=== PATIENT | female | born 1930 | race African-American/Black ===

== ENCOUNTER 2016-08-19 14:39 | Inpatient (IN) ==
[2016-08-19] MEDS ORDERED: 0.9 % Sodium Chloride 1,000 ML IVC ONE ×2 (15:01→16:44)
--- NOTE | 2016-08-19 15:02 | Emergency Department Note ---
Disposition Clinical Impression: Altered mental status, Leukocytosis Disposition: Admitted As Inpatient Condition: Fair Referrals: NO,PCP [Primary Care Provider] - Forms: ED Satisfaction Letter General Adult HPI - General Chief complaint: ED Altered Mental Status Stated complaint: mumbling less Time Seen by Provider: 08/19/16 14:41 Limitations: language barrier, age - History of Present Illness Pain Scale: 0 - Related Data Home Medications Medication Instructions Recorded Confirmed Amino Acids/Protein Hydrolys 30 ml PO DAILY 08/19/16 08/19/16 [Pro-Stat Awc Liquid] Carvedilol [Coreg] 6.25 mg PO BIDWM 08/19/16 08/19/16 Clopidogrel [Plavix] 75 mg PO DAILY 08/19/16 08/19/16 Cyclobenzaprine [Flexeril] 10 mg PO Q8H PRN 08/19/16 08/19/16 Diphenoxylate/Atropine [Lomotil 1 tab PO Q6H PRN 08/19/16 08/19/16 2.5 mg/0.025 mg] Divalproex Sodium [Depakote 250 mg PO TID 08/19/16 08/19/16 Sprinkle] Furosemide [Lasix] 20 mg PO DAILY PRN 08/19/16 08/19/16 Furosemide [Lasix] 40 mg PO DAILY 08/19/16 08/19/16 Lactose-Reduced Food [Ensure Plus] 1 bottle PO DAILY 08/19/16 08/19/16 Lipase/Protease/Amylase [Creon Dr 1 each PO TID 08/19/16 08/19/16 24,000 Units Capsule] Melatonin [Melatin] 6 mg PO HS 08/19/16 08/19/16 Memantine [Namenda] 5 mg PO HS 08/19/16 08/19/16 Methyl Salicylate/Menthol [Cold & 1 appl TP Q12H PRN 08/19/16 08/19/16 Hot Pain Relief [place]] Mirtazapine 7.5 mg PO HS 08/19/16 08/19/16 Multivitamin-Min/Iron/FA/Vit K 1 each PO DAILY 08/19/16 08/19/16 [Multi-Day Plus Minerals Tablet] Nystatin POWDER [Nystop] 1 appl TP BID PRN 08/19/16 08/19/16 Potassium Chloride [Klor-Con 10] 20 meq PO DAILY 08/19/16 08/19/16 Pravastatin Sodium [Pravachol] 20 mg PO HS 08/19/16 08/19/16 Quetiapine Fumarate [SEROquel] 25 mg PO HS 08/19/16 08/19/16 RisperiDONE [Risperdal] 0.5 mg PO BID 08/19/16 08/19/16 Tramadol HCl [Ultram] 50 mg PO Q4H 08/19/16 08/19/16 Tramadol HCl [Ultram] 50 mg PO Q4H PRN 08/19/16 08/19/16 Allergies Allergy/AdvReac Type Severity Reaction Status Date / Time acetaminophen Allergy Mild Rash Verified 06/09/15 13:00 aspirin [ASA] Allergy Rash Verified 06/09/15 13:00 bacitracin Allergy Rash Verified 06/09/15 13:00 Cefadroxil Allergy Rash Verified 06/09/15 13:00 cephalexin Allergy See Verified 08/19/16 14:56 Comments iodine Allergy See Verified 08/19/16 14:56 Comments Penicillins Allergy See Verified 08/19/16 14:56 Comments Past Medical History - Past Medical History Medical history: Reports: cancer, COPD, dementia, GERD, hepatitis, hyperlipidemia, hypertension, migraine, osteoporosis, other Psychiatric history: Reports: anxiety, depression, other - Social History Smoking Status: Former smoker Drug use: Reports: none Physical Exam - General Limitations: language barrier, age General appearance: alert, in no apparent distress Course Vital Signs O2 Sat by Pulse Oximetry 96 08/19/16 14:40 Temperature 98.7 F 08/19/16 14:44 Pulse Rate 96 08/19/16 17:59 Respiratory Rate 20 08/19/16 17:59 Blood Pressure 126/68 08/19/16 17:59 O2 Sat by Pulse Oximetry 96 08/19/16 17:59 Oxygen Delivery Oxygen Delivery Nasal Cannula Medical Decision Making - Lab Data Result diagrams: 08/19/16 16:02 08/19/16 16:02 Lab Results 08/19/16 08/19/16 08/19/16 Range/Units 15:20 16:02 16:02 WBC 18.8 H (4.3-11.1) K/mcL RBC 4.67 (3.82-4.97) M/mcL Hgb 12.9 (11.5-15.4) g/dL Hct 42.2 (35.3-44.9) % MCV 90.4 (83.0-100.0) fL MCH 27.6 L (28.0-33.3) pg MCHC 30.6 L (31.6-35.5) g/dL RDW 19.1 H (11.5-14.5) % Plt Count 213 (140-400) K/mcL MPV 12.2 (9.4-12.4) fL Immature Gran % 1.3 (0-4) % Seg Neutrophils % 83.2 % Lymphocytes % 6.5 % Monocytes % 8.3 % Eosinophils % 0.4 % Basophils % 0.3 % Neutrophils # 15.7 H (1.6-8.9) K/mcL Lymphocytes # 1.2 (0.6-4.6) K/mcL Monocytes # 1.6 H (0.0-1.3) K/mcL Eosinophils # 0.1 (0.0-0.6) K/mcL Basophils # 0.1 (0.0-0.2) K/mcL Nucleated RBCs/100 WBC 0.1 H (0) /100 WBC Sodium 162 H* (136-145) mEq/L Potassium 3.9 (3.5-4.5) mEq/L Chloride 116 H (98-109) mEq/L Carbon Dioxide 34 H (19-29) mEq/L BUN 54 H (7-20) mg/dL Creatinine 1.67 H (0.57-1.11) mg/dL Est GFR ( Amer) 35 L (> 60) Est GFR (Non-Af Amer) 29 L (> 60) BUN/Creatinine Ratio 32 H (6-26) Glucose 125 H (70-99) mg/dL Calculated Osmolality 350 H (280-300) Calcium 9.1 (8.6-10.8) mg/dL Total Bilirubin (0.2-1.2) mg/dL Direct Bilirubin (0.0-0.5) mg/dL Indirect Bilirubin (0.0-1.2) mg/dL AST (5-34) Units/L ALT (0-55) Units/L Alkaline Phosphatase (38-126) Units/L Serum Total Protein (6.0-8.3) g/dL Albumin (3.5-5.0) g/dL Globulin (2.4-3.5) g/dL Albumin/Globulin Ratio (1.1-2.2) Urine Color Yellow (Yellow) Urine Clarity Clear (Clear) Urine pH 5.0 (5.0-8.0) pH Units Ur Specific [place] 1.017 (1.010-1.025) Urine Protein Negative (Neg-Trace) mg/dL Urine Glucose (UA) Normal (Normal) mg/dL Urine Ketones Negative (Negative) mg/dL Urine Blood Negative (Negative) Urine Nitrite Negative (Negative) Urine Bilirubin Negative (Negative) Urine Urobilinogen Normal (Normal) mg/dL Ur Leukocyte Esterase Negative (Negative) Ur Culture Indicated? NO (NO) Valproic Acid (50-100) mcg/mL Specimen Rejected 08/19/16 08/19/16 Range/Units 16:02 17:30 WBC (4.3-11.1) K/mcL RBC (3.82-4.97) M/mcL Hgb (11.5-15.4) g/dL Hct (35.3-44.9) % MCV (83.0-100.0) fL MCH (28.0-33.3) pg MCHC (31.6-35.5) g/dL RDW (11.5-14.5) % Plt Count (140-400) K/mcL MPV (9.4-12.4) fL Immature Gran % (0-4) % Seg Neutrophils % % Lymphocytes % % Monocytes % % Eosinophils % % Basophils % % Neutrophils # (1.6-8.9) K/mcL Lymphocytes # (0.6-4.6) K/mcL Monocytes # (0.0-1.3) K/mcL Eosinophils # (0.0-0.6) K/mcL Basophils # (0.0-0.2) K/mcL Nucleated RBCs/100 WBC (0) /100 WBC Sodium (136-145) mEq/L Potassium (3.5-4.5) mEq/L Chloride (98-109) mEq/L Carbon Dioxide (19-29) mEq/L BUN (7-20) mg/dL Creatinine (0.57-1.11) mg/dL Est GFR ( Amer) (> 60) Est GFR (Non-Af Amer) (> 60) BUN/Creatinine Ratio (6-26) Glucose (70-99) mg/dL Calculated Osmolality (280-300) Calcium (8.6-10.8) mg/dL Total Bilirubin 0.2 (0.2-1.2) mg/dL Direct Bilirubin 0.2 (0.0-0.5) mg/dL Indirect Bilirubin 0.0 (0.0-1.2) mg/dL AST 34 (5-34) Units/L ALT 25 (0-55) Units/L Alkaline Phosphatase 79 (38-126) Units/L Serum Total Protein 7.9 (6.0-8.3) g/dL Albumin 2.4 L (3.5-5.0) g/dL Globulin 5.5 H (2.4-3.5) g/dL Albumin/Globulin Ratio 0.4 L (1.1-2.2) Urine Color (Yellow) Urine Clarity (Clear) Urine pH (5.0-8.0) pH Units Ur Specific [place] (1.010-1.025) Urine Protein (Neg-Trace) mg/dL Urine Glucose (UA) (Normal) mg/dL Urine Ketones (Negative) mg/dL Urine Blood (Negative) Urine Nitrite (Negative) Urine Bilirubin (Negative) Urine Urobilinogen (Normal) mg/dL Ur Leukocyte Esterase (Negative) Ur Culture Indicated? (NO) Valproic Acid 65.24 (50-100) mcg/mL Specimen Rejected Hemolyzed Critical Care Time Critical Care Time: Yes Total Critical Care Time: 45 Attestation: Patient presented with altered mental status. Sodium markedly elevated requiring IV fluids. Lumbar puncture performed by the resident physician under my supervision. Admitted to the medicine service in guarded condition Attestation Statement - Attestation Attestation: I examined this patient and my medical decision-making was reviewed with the [employer] TECH[employer]ICAL OFFICER/PA/Advanced Practice Nurse/Resident Physician. I agree with the documented findings, disposition and treatment plan as described except to the extent set forth below. Face to face time provided Patient sent from the [facility] for changes in baseline mentation. She has a known history of dementia. Medication list reviewed by me. Patient nonverbal in the emergency department and is reported to be nonverbal at baseline. Right lower extremity covered and a circumferential dressing at the foot and ankle. Plan of care and management discussed by me with the resident physician 18:25: Lumbar puncture performed by the resident physician under my supervision. We were unable to contact any caretakers or surrogate decision- makers in order to obtain written consent. Given her fever and altered mentation, the lumbar puncture was performed under urgent circumstances.
--- NOTE | 2016-08-19 15:24 | Emergency Department Note ---
Disposition Clinical Impression: Altered mental status, Leukocytosis Disposition: Admitted As Inpatient Condition: Fair Referrals: NO,PCP [Primary Care Provider] - Forms: ED Satisfaction Letter Time of Disposition: 18:43 General Adult HPI - General Chief complaint: ED Altered Mental Status Stated complaint: mumbling less Time Seen by Provider: 08/19/16 14:41 Source: EMS Mode of arrival: EMS Limitations: language barrier, age Nursing Notes Reviewed: Yes Vital Signs Reviewed: Yes - History of Present Illness HPI Narrative: 78-year-old female presents from [facility] where she resides for advanced dementia. She presents for reportedly less incomprehensible mumbling from her baseline. At baseline, the patient is talkative with incomprehensible words, but lately the patient has not been mumbling as much as usual. No further history is available from the patient. There is no report of any shortness of breath or vomiting or change in intake or output or fevers. No known recent illness or injury. Pain Scale: 0 - Related Data Home Medications Medication Instructions Recorded Confirmed Amino Acids/Protein Hydrolys 30 ml PO DAILY 08/19/16 08/19/16 [Pro-Stat Awc Liquid] Carvedilol [Coreg] 6.25 mg PO BIDWM 08/19/16 08/19/16 Clopidogrel [Plavix] 75 mg PO DAILY 08/19/16 08/19/16 Cyclobenzaprine [Flexeril] 10 mg PO Q8H PRN 08/19/16 08/19/16 Diphenoxylate/Atropine [Lomotil 1 tab PO Q6H PRN 08/19/16 08/19/16 2.5 mg/0.025 mg] Divalproex Sodium [Depakote 250 mg PO TID 08/19/16 08/19/16 Sprinkle] Furosemide [Lasix] 20 mg PO DAILY PRN 08/19/16 08/19/16 Furosemide [Lasix] 40 mg PO DAILY 08/19/16 08/19/16 Lactose-Reduced Food [Ensure Plus] 1 bottle PO DAILY 08/19/16 08/19/16 Lipase/Protease/Amylase [Creon Dr 1 each PO TID 08/19/16 08/19/16 24,000 Units Capsule] Melatonin [Melatin] 6 mg PO HS 08/19/16 08/19/16 Memantine [Namenda] 5 mg PO HS 08/19/16 08/19/16 Methyl Salicylate/Menthol [Cold & 1 appl TP Q12H PRN 08/19/16 08/19/16 Hot Pain Relief [place]] Mirtazapine 7.5 mg PO HS 08/19/16 08/19/16 Multivitamin-Min/Iron/FA/Vit K 1 each PO DAILY 08/19/16 08/19/16 [Multi-Day Plus Minerals Tablet] Nystatin POWDER [Nystop] 1 appl TP BID PRN 08/19/16 08/19/16 Potassium Chloride [Klor-Con 10] 20 meq PO DAILY 08/19/16 08/19/16 Pravastatin Sodium [Pravachol] 20 mg PO HS 08/19/16 08/19/16 Quetiapine Fumarate [SEROquel] 25 mg PO HS 08/19/16 08/19/16 RisperiDONE [Risperdal] 0.5 mg PO BID 08/19/16 08/19/16 Tramadol HCl [Ultram] 50 mg PO Q4H 08/19/16 08/19/16 Tramadol HCl [Ultram] 50 mg PO Q4H PRN 08/19/16 08/19/16 Allergies Allergy/AdvReac Type Severity Reaction Status Date / Time acetaminophen Allergy Mild Rash Verified 06/09/15 13:00 aspirin [ASA] Allergy Rash Verified 06/09/15 13:00 bacitracin Allergy Rash Verified 06/09/15 13:00 Cefadroxil Allergy Rash Verified 06/09/15 13:00 cephalexin Allergy See Verified 08/19/16 14:56 Comments iodine Allergy See Verified 08/19/16 14:56 Comments Penicillins Allergy See Verified 08/19/16 14:56 Comments All systems ED: reviewed and negative except as stated. Past Medical History - Past Medical History Attestation: Yes The following information was validated with the patient. Source: patient Medical history: Reports: cancer, COPD, dementia, GERD, hepatitis, hyperlipidemia, hypertension, migraine, osteoporosis, other Psychiatric history: Reports: anxiety, depression, other - Social History Smoking Status: Former smoker Drug use: Reports: none Physical Exam - Head Head exam: atraumatic, normocephalic, normal inspection - Eye Eye exam: Present: normal appearance, PERRL, EOMI - ENT ENT exam: normal exam, normal oropharynx, mucous membranes moist - Neck Neck exam: Present: normal inspection, full ROM, trachea midline - Chest Chest inspection: Present: normal inspection, symmetric chest wall rise - Respiratory Respiratory exam: Clear to auscultation bilaterally without wheezes rales or rhonchi Cardiovascular Cardiovascular exam: Present: regular rate, normal rhythm, normal heart sounds - Abdominal Exam Abdominal exam: Present: soft, Non-Tender. Absent: tenderness, distention, guarding, rebound, rigidity - Extremities Exam Left lower extremity status post amputation. Right foot dressing removed to show a very mild pressure ulcer to the right heel. Patient rolled and back exam and sacral exam did not show any abnormality. - Neurological Exam Awake with incomprehensible mumbling. Moves all extremities. - Skin Skin exam: Present: warm, dry, intact, normal color - General Limitations: language barrier, age General appearance: alert, in no apparent distress Course - Reevaluation(s) Reevaluation #1: Patient found to have leukocytosis to 19 with normal chest x-ray, CT head, urinalysis. Abdominal exam is benign. The patient was undressed and there are no skin lesions other than very mild pressure ulcer to the right heel. No signs of C. difficile. Lungs are clear. No vomiting. Given the patient's fever with leukocytosis and altered mental status we will proceed with a lumbar puncture. I attempted to reach the patient's sister Mari Moseley, but the number is disconnected. We will proceed with the procedure emergently. Patient will receive Versed for sedation for the procedure. Time: 16:49 Reevaluation #2: Patient found to have hypernatremia at 162 with acute renal failure with creatinine of 1.67. She is given 1 L of lactated ringer solution here in the emergency department with another liter ordered. Not started on empiric antibiotics due to low suspicion for bacterial meningitis and clear CSF. Patient accepted by hospitalist for further management. Time: 18:42 Vital Signs O2 Sat by Pulse Oximetry 96 08/19/16 14:40 Temperature 98.7 F 08/19/16 14:44 Pulse Rate 96 08/19/16 17:59 Respiratory Rate 20 08/19/16 17:59 Blood Pressure 126/68 08/19/16 17:59 O2 Sat by Pulse Oximetry 96 08/19/16 17:59 Oxygen Delivery Oxygen Delivery Nasal Cannula Procedures - Lumbar Puncture Time Out Performed: Yes Patient Position: right lateral decubitus Skin Prep: 0.5% Chlorhexidine/Alcohol Local Anesthetic: lidocaine 1% Amount of anesthesia used (mL): 4 Spinal Needle Gauge: 22G Interspace Used: L3-L4 Fluid Initially Obtained: clear (Initially slightly bloody) Complications: traumatic tap Medical Decision Making - Lab Data Result diagrams: 08/19/16 16:02 08/19/16 16:02 Lab Results 08/19/16 08/19/16 08/19/16 Range/Units 15:20 16:02 16:02 WBC 18.8 H (4.3-11.1) K/mcL RBC 4.67 (3.82-4.97) M/mcL Hgb 12.9 (11.5-15.4) g/dL Hct 42.2 (35.3-44.9) % MCV 90.4 (83.0-100.0) fL MCH 27.6 L (28.0-33.3) pg MCHC 30.6 L (31.6-35.5) g/dL RDW 19.1 H (11.5-14.5) % Plt Count 213 (140-400) K/mcL MPV 12.2 (9.4-12.4) fL Immature Gran % 1.3 (0-4) % Seg Neutrophils % 83.2 % Lymphocytes % 6.5 % Monocytes % 8.3 % Eosinophils % 0.4 % Basophils % 0.3 % Neutrophils # 15.7 H (1.6-8.9) K/mcL Lymphocytes # 1.2 (0.6-4.6) K/mcL Monocytes # 1.6 H (0.0-1.3) K/mcL Eosinophils # 0.1 (0.0-0.6) K/mcL Basophils # 0.1 (0.0-0.2) K/mcL Nucleated RBCs/100 WBC 0.1 H (0) /100 WBC Sodium 162 H* (136-145) mEq/L Potassium 3.9 (3.5-4.5) mEq/L Chloride 116 H (98-109) mEq/L Carbon Dioxide 34 H (19-29) mEq/L BUN 54 H (7-20) mg/dL Creatinine 1.67 H (0.57-1.11) mg/dL Est GFR ( Amer) 35 L (> 60) Est GFR (Non-Af Amer) 29 L (> 60) BUN/Creatinine Ratio 32 H (6-26) Glucose 125 H (70-99) mg/dL Calculated Osmolality 350 H (280-300) Calcium 9.1 (8.6-10.8) mg/dL Total Bilirubin (0.2-1.2) mg/dL Direct Bilirubin (0.0-0.5) mg/dL Indirect Bilirubin (0.0-1.2) mg/dL AST (5-34) Units/L ALT (0-55) Units/L Alkaline Phosphatase (38-126) Units/L Serum Total Protein (6.0-8.3) g/dL Albumin (3.5-5.0) g/dL Globulin (2.4-3.5) g/dL Albumin/Globulin Ratio (1.1-2.2) Urine Color Yellow (Yellow) Urine Clarity Clear (Clear) Urine pH 5.0 (5.0-8.0) pH Units Ur Specific [place] 1.017 (1.010-1.025) Urine Protein Negative (Neg-Trace) mg/dL Urine Glucose (UA) Normal (Normal) mg/dL Urine Ketones Negative (Negative) mg/dL Urine Blood Negative (Negative) Urine Nitrite Negative (Negative) Urine Bilirubin Negative (Negative) Urine Urobilinogen Normal (Normal) mg/dL Ur Leukocyte Esterase Negative (Negative) Ur Culture Indicated? NO (NO) Valproic Acid (50-100) mcg/mL Specimen Rejected 08/19/16 08/19/16 Range/Units 16:02 17:30 WBC (4.3-11.1) K/mcL RBC (3.82-4.97) M/mcL Hgb (11.5-15.4) g/dL Hct (35.3-44.9) % MCV (83.0-100.0) fL MCH (28.0-33.3) pg MCHC (31.6-35.5) g/dL RDW (11.5-14.5) % Plt Count (140-400) K/mcL MPV (9.4-12.4) fL Immature Gran % (0-4) % Seg Neutrophils % % Lymphocytes % % Monocytes % % Eosinophils % % Basophils % % Neutrophils # (1.6-8.9) K/mcL Lymphocytes # (0.6-4.6) K/mcL Monocytes # (0.0-1.3) K/mcL Eosinophils # (0.0-0.6) K/mcL Basophils # (0.0-0.2) K/mcL Nucleated RBCs/100 WBC (0) /100 WBC Sodium (136-145) mEq/L Potassium (3.5-4.5) mEq/L Chloride (98-109) mEq/L Carbon Dioxide (19-29) mEq/L BUN (7-20) mg/dL Creatinine (0.57-1.11) mg/dL Est GFR ( Amer) (> 60) Est GFR (Non-Af Amer) (> 60) BUN/Creatinine Ratio (6-26) Glucose (70-99) mg/dL Calculated Osmolality (280-300) Calcium (8.6-10.8) mg/dL Total Bilirubin 0.2 (0.2-1.2) mg/dL Direct Bilirubin 0.2 (0.0-0.5) mg/dL Indirect Bilirubin 0.0 (0.0-1.2) mg/dL AST 34 (5-34) Units/L ALT 25 (0-55) Units/L Alkaline Phosphatase 79 (38-126) Units/L Serum Total Protein 7.9 (6.0-8.3) g/dL Albumin 2.4 L (3.5-5.0) g/dL Globulin 5.5 H (2.4-3.5) g/dL Albumin/Globulin Ratio 0.4 L (1.1-2.2) Urine Color (Yellow) Urine Clarity (Clear) Urine pH (5.0-8.0) pH Units Ur Specific [place] (1.010-1.025) Urine Protein (Neg-Trace) mg/dL Urine Glucose (UA) (Normal) mg/dL Urine Ketones (Negative) mg/dL Urine Blood (Negative) Urine Nitrite (Negative) Urine Bilirubin (Negative) Urine Urobilinogen (Normal) mg/dL Ur Leukocyte Esterase (Negative) Ur Culture Indicated? (NO) Valproic Acid 65.24 (50-100) mcg/mL Specimen Rejected Hemolyzed - EKG Data EKG #1 EKG attestation: Yes I reviewed and interpreted this EKG. EKG results narrative: Sinus tachycardia at 108 with normal axis and intervals. No ST elevation or depression. No T-wave inversions. Prior EKG in May 2016 showed atrial fibrillation.
[2016-08-19 15:28] LABS: Bilirubin,Urine Negative (Negative); Blood,Urine Negative (Negative); Clarity,Urine Clear (Clear); Color,Urine Yellow (Yellow); Glucose,Urine (UA) Normal (Normal); Ketones,Urine Negative (Negative); Leukocyte Esterase,Urine Negative (Negative); Nitrite,Urine Negative (Negative); Protein,Urine Negative (Neg-Trace); Specific Gravity,Urine 1.017 (1.010-1.025); Urobilinogen,Urine Normal (Normal)
[2016-08-19 16:22] LABS: Basophils # 0.1 K/mcL (0.0-0.2); Basophils % 0.3 %; Eosinophils # 0.1 K/mcL (0.0-0.6); Eosinophils % 0.4 %; Hematocrit 42.2 % (35.3-44.9); Hemoglobin 12.9 g/dL (11.5-15.4); Immature Granulocytes % 1.3 % (0-4); Lymphocytes # 1.2 K/mcL (0.6-4.6); Lymphocytes % 6.5 %; Mean Corpuscular HGB Conc 30.6 g/dL (31.6-35.5); Mean Corpuscular Hemoglobin 27.6 pg (28.0-33.3); Mean Corpuscular Volume 90.4 fL (83.0-100.0); Mean Platelet Volume 12.2 fL (9.4-12.4); Monocytes # 1.6 K/mcL (0.0-1.3); Monocytes % 8.3 %; Neutrophils # 15.7 K/mcL (1.6-8.9); Nucleated Red Blood Cells 0.1 /100 WBC (0); Platelet Count 213 K/mcL (140-400); Red Blood Count 4.67 M/mcL (3.82-4.97); Red Cell Distribution Width 19.1 % (11.5-14.5); Segmented Neutrophils % 83.2 %
[2016-08-19 16:36] LABS: Albumin 2.4 g/dL (3.5-5.0); Albumin/Globulin Ratio 0.4 (1.1-2.2); Bilirubin,Direct 0.2 mg/dL (0.0-0.5); Bilirubin,Total 0.2 mg/dL (0.2-1.2); Calcium 9.1 mg/dL (8.6-10.8); Globulin 5.5 g/dL (2.4-3.5); Potassium 3.9 mEq/L (3.5-4.5); Total Protein 7.9 g/dL (6.0-8.3)
[2016-08-19 16:46] LABS: Valproate 65.24 mcg/mL (50-100)
[2016-08-19] MEDS ORDERED: *HR* Midazolam HCl 5 MG/5 ML VIAL IVP ONE (16:49)
[2016-08-19] MEDS ORDERED: Ringers Solution, Lactated 1,000 ML IVC ONE ×2 (17:11→18:43)
[2016-08-19] MEDS ORDERED: *HR* Midazolam HCl 2 MG/2 ML VIAL IVP ONE (17:12)
[2016-08-19 18:48] LABS: Red Blood Cell,CSF 0.003 M/mcL
[2016-08-19 19:00] LABS: Appearance,CSF Hazy (Clear)
[2016-08-19 19:22] LABS: Glucose,CSF 88 mg/dL (40-70); Total Protein,CSF 43 mg/dL (15-45)
[2016-08-19] MEDS ORDERED: Naloxone 0.4 MG/ML INJ IVP PRN (20:41)
[2016-08-19] MEDS ORDERED: Ringers Solution, Lactated 1,000 ML IVC SCH (21:00)
--- NOTE | 2016-08-19 21:03 | Internal Med History&Physical ---
Date of Encounter: 08/19/16 Time of Encounter: 20:52 Assessment and Plan (1) Dehydration Current visit: Yes Status: Acute Patient with hypernatremia, CAROLINE. Mucous membranes dry on exam, and skin tents. 2L of lactated ringers boluses ordered by ED. Follow with 0.45NS at 125mL/ hr. Recheck sodium Q4hr and chemistry with morning labs. (2) Hypernatremia Current visit: Yes Status: Acute Sodium of 162. Likely secondary to severe dehydration. 2L of LR ordered by ED. Follow up with 0.45NS at 125mL/hr. Check sodium Q4 hours. (3) Acute kidney injury Current visit: Yes Status: Acute Creatinine of 1.67 up from previous baseline of 1.16 on 07/11/16. Likely secondary to severe dehydration. UA not concerning for infection. Hydrate with fluids overnight, recheck chemistry in the morning. (4) Altered mental status Current visit: Yes Status: Acute Patient's baseline mental status is reported to be mumbling nonsense, and she is reportedly less verbal than her baseline. Likely secondary to severe dehydration and/or infection. Qualifiers: Altered mental status type: unspecified Qualified Code(s): R41.82 - Altered mental status, unspecified (5) Leukocytosis Current visit: Yes Status: Acute WBC of 18.8, fever of 100.4. Lactate elevated at 5.3. No clear source of infection as CXR showed no acute cardiopulmonary abnormality, urine was not concerning for infection and CSF from lumbar puncture was not concerning for infection. Blood cultures ordered. CT of chest, abd/pelvis ordered. Will initiate antibiotics once source identified, in the mean time, may be reactive to severe dehydration. Qualifiers: Leukocytosis type: unspecified Qualified Code(s): D72.829 - Elevated white blood cell count, unspecified (6) Dementia Current visit: Yes Status: Acute patient resides at extended care facility for advanced dementia. Requires total care at baseline. Continue home doses of Namenda. [place] thickened liquids and pureed food. Qualifiers: Dementia type: unspecified type Dementia behavioral disturbance: without behavioral disturbance Qualified Code(s): F03.90 - Unspecified dementia without behavioral disturbance (7) DVT prophylaxis Current visit: Yes Status: Acute Internal Medicine - H&P: HPI Chief complaint: altered mental status Admitted From: Emergency Dept Plans for Post Hospital Care: Home History of present illness: Ms. Rivas is a 86 year old female with dementia, hypertension, hyperlipidemia, hepatitis C, history of colon cancer, COPD, was sent to the emergency department from her extended care facility with a change in her baseline mental status. Patient is reportedly minimally verbal with nonsensical mumbling at baseline, is reported that she was not verbalizing as much as her usual baseline. Evaluation in the emergency department revealed elevated white blood cell count of 18.8, hypernatremia with sodium of 162, acute kidney injury with BUN of 54 and creatinine of 1.67, lactic acidosis with a lactate of 5.3. Patient was tachycardic with heart rate in the 90s and her temperature was 100.4. UA was negative for infection, chest x-ray showed no acute abnormality, lumbar puncture was clear and not concerning for infection. On exam, patient yells out with with physical stimuli. Heart has regular rate and rhythm, lungs clear to auscultation bilaterally. She has a left above-knee amputation. Mucous membranes are dry, skin with tenting. Past Med Surg Social Fam HX - Past Medical History Medical history: cancer (history of colon cancer), COPD, dementia, GERD, hepatitis, hyperlipidemia, hypertension, migraine, osteoporosis, other Psychiatric history: anxiety, depression, other - Past Surgical History Surgical History: orthopedic, other - Social History Smoking Status: Former smoker Drug use: none Internal Medicine - H&P: Meds Amino Acids/Protein Hydrolys [Pro-Stat Awc Liquid] 30 ml PO DAILY 08/19/16 [ History] Carvedilol [Coreg] 6.25 mg PO BIDWM 08/19/16 [History] Clopidogrel [Plavix] 75 mg PO DAILY 08/19/16 [History] Cyclobenzaprine [Flexeril] 10 mg PO Q8H PRN 08/19/16 [History] Diphenoxylate/Atropine [Lomotil 2.5 mg/0.025 mg] 1 tab PO Q6H PRN 08/19/16 [ History] Divalproex Sodium [Depakote Sprinkle] 250 mg PO TID 08/19/16 [History] Furosemide [Lasix] 20 mg PO DAILY PRN 08/19/16 [History] Furosemide [Lasix] 40 mg PO DAILY 08/19/16 [History] Lactose-Reduced Food [Ensure Plus] 1 bottle PO DAILY 08/19/16 [History] Lipase/Protease/Amylase [Creon Dr 24,000 Units Capsule] 1 each PO TID 08/19/16 [ History] Melatonin [Melatin] 6 mg PO HS 08/19/16 [History] Memantine [Namenda] 5 mg PO HS 08/19/16 [History] Methyl Salicylate/Menthol [Cold & Hot Pain Relief [place]] 1 appl TP Q12H PRN 08/19 [History] Mirtazapine 7.5 mg PO HS 08/19/16 [History] Multivitamin-Min/Iron/FA/Vit K [Multi-Day Plus Minerals Tablet] 1 each PO DAILY 08/19/16 [History] Nystatin POWDER [Nystop] 1 appl TP BID PRN 08/19/16 [History] Potassium Chloride [Klor-Con 10] 20 meq PO DAILY 08/19/16 [History] Pravastatin Sodium [Pravachol] 20 mg PO HS 08/19/16 [History] Quetiapine Fumarate [SEROquel] 25 mg PO HS 08/19/16 [History] RisperiDONE [Risperdal] 0.5 mg PO BID 08/19/16 [History] Tramadol HCl [Ultram] 50 mg PO Q4H 08/19/16 [History] Tramadol HCl [Ultram] 50 mg PO Q4H PRN 08/19/16 [History] Allergies acetaminophen Allergy (Mild, Verified 06/09/15 13:00) Rash aspirin [ASA] Allergy (Verified 06/09/15 13:00) Rash bacitracin Allergy (Verified 06/09/15 13:00) Rash Cefadroxil Allergy (Verified 06/09/15 13:00) Rash cephalexin Allergy (Verified 08/19/16 14:56) See Comments iodine Allergy (Verified 08/19/16 14:56) See Comments Penicillins Allergy (Verified 08/19/16 14:56) See Comments ROS unobtainable: due to mental status All Systems PM: A 10-system review of systems was performed and is negative for pertinent findings except as documented above in the HPI. - Constitutional Vitals: Temp Pulse Resp BP Pulse Ox 97.6 F 93 14 104/53 97 08/19/16 20:19 08/19/16 20:19 08/19/16 20:19 08/19/16 20:19 08/19/16 20:19 General appearance: Present: A&O X 0 - Head Head exam: Present: atraumatic, normocephalic - Eye Eye exam: Present: PERRL, conjuntiva pink, sclera anicteric Pupils: Present: PERRL - ENT ENT exam: Present: mucous membranes dry - Neck Neck exam general surgery: Present: supple, trachea midline. Absent: lymphadenopathy - Respiratory Respiratory exam: Present: CTAB. Absent: accessory muscle use, rales, rhonchi, wheezes - Cardiovascular Cardiovascular exam: Present: RRR, +S1, +S2. Absent: diastolic murmur, gallop, rubs, systolic murmur - GI/Abdominal GI/Abdominal exam: Present: normal bowel sounds, soft, tenderness, no peritoneal signs. Absent: distended - Extremities Exam Extremities exam: Present: warm, radial pulses palpable and symetrical. Absent : calf tenderness, cyanotic, pedal edema Additional comments: left above knee amputation - Neurological Exam Neurological exam: Present: CN II-XII intact. Absent: facial droop - Skin Skin exam: Present: dry, intact Additional comments: tenting Internal Med - H&P Results - Labs CBC & Chem 7: 08/19/16 16:02 08/19/16 16:02 Labs: All Lab Results (24 Hours) 08/19/16 08/19/16 08/19/16 Range/Units 15:20 16:02 16:02 WBC 18.8 H (4.3-11.1) K/mcL RBC 4.67 (3.82-4.97) M/mcL Hgb 12.9 (11.5-15.4) g/dL Hct 42.2 (35.3-44.9) % MCV 90.4 (83.0-100.0) fL MCH 27.6 L (28.0-33.3) pg MCHC 30.6 L (31.6-35.5) g/dL RDW 19.1 H (11.5-14.5) % Plt Count 213 (140-400) K/mcL MPV 12.2 (9.4-12.4) fL Immature Gran % 1.3 (0-4) % Seg Neutrophils % 83.2 % Lymphocytes % 6.5 % Monocytes % 8.3 % Eosinophils % 0.4 % Basophils % 0.3 % Neutrophils # 15.7 H (1.6-8.9) K/mcL Lymphocytes # 1.2 (0.6-4.6) K/mcL Monocytes # 1.6 H (0.0-1.3) K/mcL Eosinophils # 0.1 (0.0-0.6) K/mcL Basophils # 0.1 (0.0-0.2) K/mcL Nucleated RBCs/100 WBC 0.1 H (0) /100 WBC Sodium 162 H* (136-145) mEq/L Potassium 3.9 (3.5-4.5) mEq/L Chloride 116 H (98-109) mEq/L Carbon Dioxide 34 H (19-29) mEq/L BUN 54 H (7-20) mg/dL Creatinine 1.67 H (0.57-1.11) mg/dL Est GFR ( Amer) 35 L (> 60) Est GFR (Non-Af Amer) 29 L (> 60) BUN/Creatinine Ratio 32 H (6-26) Glucose 125 H (70-99) mg/dL Calculated Osmolality 350 H (280-300) Lactic Acid (0.5-2.2) mmol/L Calcium 9.1 (8.6-10.8) mg/dL Total Bilirubin (0.2-1.2) mg/dL Direct Bilirubin (0.0-0.5) mg/dL Indirect Bilirubin (0.0-1.2) mg/dL AST (5-34) Units/L ALT (0-55) Units/L Alkaline Phosphatase (38-126) Units/L Serum Total Protein (6.0-8.3) g/dL Albumin (3.5-5.0) g/dL Globulin (2.4-3.5) g/dL Albumin/Globulin Ratio (1.1-2.2) Urine Color Yellow (Yellow) Urine Clarity Clear (Clear) Urine pH 5.0 (5.0-8.0) pH Units Ur Specific [place] 1.017 (1.010-1.025) Urine Protein Negative (Neg-Trace) mg/dL Urine Glucose (UA) Normal (Normal) mg/dL Urine Ketones Negative (Negative) mg/dL Urine Blood Negative (Negative) Urine Nitrite Negative (Negative) Urine Bilirubin Negative (Negative) Urine Urobilinogen Normal (Normal) mg/dL Ur Leukocyte Esterase Negative (Negative) Ur Culture Indicated? NO (NO) CSF Volume mL CSF Appearance (Clear) CSF Color (Colorless) CSF RBC (0.000 - 0.002) M/mcL CSF Tot Nucleated Cells (0-5) TNC/mcL CSF Seg Neutrophils CSF Band Neutrophils % CSF Lymphocytes % CSF Monocytes % CSF Eosinophils % CSF Basophils % CSF Other Cells % CSF Glucose (40-70) mg/dL CSF Xanth Comm (Not Observe) CSF Total Protein (15-45) mg/dL Valproic Acid (50-100) mcg/mL Specimen Rejected 08/19/16 08/19/16 08/19/16 Range/Units 16:02 17:30 18:31 WBC (4.3-11.1) K/mcL RBC (3.82-4.97) M/mcL Hgb (11.5-15.4) g/dL Hct (35.3-44.9) % MCV (83.0-100.0) fL MCH (28.0-33.3) pg MCHC (31.6-35.5) g/dL RDW (11.5-14.5) % Plt Count (140-400) K/mcL MPV (9.4-12.4) fL Immature Gran % (0-4) % Seg Neutrophils % % Lymphocytes % % Monocytes % % Eosinophils % % Basophils % % Neutrophils # (1.6-8.9) K/mcL Lymphocytes # (0.6-4.6) K/mcL Monocytes # (0.0-1.3) K/mcL Eosinophils # (0.0-0.6) K/mcL Basophils # (0.0-0.2) K/mcL Nucleated RBCs/100 WBC (0) /100 WBC Sodium (136-145) mEq/L Potassium (3.5-4.5) mEq/L Chloride (98-109) mEq/L Carbon Dioxide (19-29) mEq/L BUN (7-20) mg/dL Creatinine (0.57-1.11) mg/dL Est GFR ( Amer) (> 60) Est GFR (Non-Af Amer) (> 60) BUN/Creatinine Ratio (6-26) Glucose (70-99) mg/dL Calculated Osmolality (280-300) Lactic Acid (0.5-2.2) mmol/L Calcium (8.6-10.8) mg/dL Total Bilirubin 0.2 (0.2-1.2) mg/dL Direct Bilirubin 0.2 (0.0-0.5) mg/dL Indirect Bilirubin 0.0 (0.0-1.2) mg/dL AST 34 (5-34) Units/L ALT 25 (0-55) Units/L Alkaline Phosphatase 79 (38-126) Units/L Serum Total Protein 7.9 (6.0-8.3) g/dL Albumin 2.4 L (3.5-5.0) g/dL Globulin 5.5 H (2.4-3.5) g/dL Albumin/Globulin Ratio 0.4 L (1.1-2.2) Urine Color (Yellow) Urine Clarity (Clear) Urine pH (5.0-8.0) pH Units Ur Specific [place] (1.010-1.025) Urine Protein (Neg-Trace) mg/dL Urine Glucose (UA) (Normal) mg/dL Urine Ketones (Negative) mg/dL Urine Blood (Negative) Urine Nitrite (Negative) Urine Bilirubin (Negative) Urine Urobilinogen (Normal) mg/dL Ur Leukocyte Esterase (Negative) Ur Culture Indicated? (NO) CSF Volume 1.5 mL CSF Appearance Hazy (Clear) CSF Color Colorless (Colorless) CSF RBC 0.003 H (0.000 - 0.002) M/mcL CSF Tot Nucleated Cells 5 (0-5) TNC/mcL CSF Seg Neutrophils TNP CSF Band Neutrophils % TNP CSF Lymphocytes % TNP CSF Monocytes % TNP CSF Eosinophils % TNP CSF Basophils % TNP CSF Other Cells % TNP CSF Glucose 88 H (40-70) mg/dL CSF Xanth Comm Not Observed (Not Observe) CSF Total Protein 43 (15-45) mg/dL Valproic Acid 65.24 (50-100) mcg/mL Specimen Rejected Hemolyzed 08/19/16 Range/Units 19:04 WBC (4.3-11.1) K/mcL RBC (3.82-4.97) M/mcL Hgb (11.5-15.4) g/dL Hct (35.3-44.9) % MCV (83.0-100.0) fL MCH (28.0-33.3) pg MCHC (31.6-35.5) g/dL RDW (11.5-14.5) % Plt Count (140-400) K/mcL MPV (9.4-12.4) fL Immature Gran % (0-4) % Seg Neutrophils % % Lymphocytes % % Monocytes % % Eosinophils % % Basophils % % Neutrophils # (1.6-8.9) K/mcL Lymphocytes # (0.6-4.6) K/mcL Monocytes # (0.0-1.3) K/mcL Eosinophils # (0.0-0.6) K/mcL Basophils # (0.0-0.2) K/mcL Nucleated RBCs/100 WBC (0) /100 WBC Sodium (136-145) mEq/L Potassium (3.5-4.5) mEq/L Chloride (98-109) mEq/L Carbon Dioxide (19-29) mEq/L BUN (7-20) mg/dL Creatinine (0.57-1.11) mg/dL Est GFR ( Amer) (> 60) Est GFR (Non-Af Amer) (> 60) BUN/Creatinine Ratio (6-26) Glucose (70-99) mg/dL Calculated Osmolality (280-300) Lactic Acid 5.3 H* (0.5-2.2) mmol/L Calcium (8.6-10.8) mg/dL Total Bilirubin (0.2-1.2) mg/dL Direct Bilirubin (0.0-0.5) mg/dL Indirect Bilirubin (0.0-1.2) mg/dL AST (5-34) Units/L ALT (0-55) Units/L Alkaline Phosphatase (38-126) Units/L Serum Total Protein (6.0-8.3) g/dL Albumin (3.5-5.0) g/dL Globulin (2.4-3.5) g/dL Albumin/Globulin Ratio (1.1-2.2) Urine Color (Yellow) Urine Clarity (Clear) Urine pH (5.0-8.0) pH Units Ur Specific [place] (1.010-1.025) Urine Protein (Neg-Trace) mg/dL Urine Glucose (UA) (Normal) mg/dL Urine Ketones (Negative) mg/dL Urine Blood (Negative) Urine Nitrite (Negative) Urine Bilirubin (Negative) Urine Urobilinogen (Normal) mg/dL Ur Leukocyte Esterase (Negative) Ur Culture Indicated? (NO) CSF Volume mL CSF Appearance (Clear) CSF Color (Colorless) CSF RBC (0.000 - 0.002) M/mcL CSF Tot Nucleated Cells (0-5) TNC/mcL CSF Seg Neutrophils CSF Band Neutrophils % CSF Lymphocytes % CSF Monocytes % CSF Eosinophils % CSF Basophils % CSF Other Cells % CSF Glucose (40-70) mg/dL CSF Xanth Comm (Not Observe) CSF Total Protein (15-45) mg/dL Valproic Acid (50-100) mcg/mL Specimen Rejected - Diagnostic Studies Chest x-ray Additional comments: Chest X-Ray 08/19/16 15:01 IMPRESSION: No acute cardiopulmonary disease. D/ / Ty Fowler MD / Ty Fowler MD Interpreting Provider: Ty Fowler MD CT scan - head Additional comments: Head CT 08/19/16 15:01 IMPRESSION: Limited evaluation due to motion artifact. No acute intracranial abnormality. D/ / Roxana Bautista MD / Roxana Bautista MD Interpreting Provider: Roxana Bautista MD
[2016-08-19] MEDS: Divalproex Sodium 125 MG CAPSULE PO SCH (23:26)
[2016-08-19] MEDS: Melatonin 3 MG TABLET PO SCH (23:26)
[2016-08-19] MEDS: *HR* Heparin 5,000 UNIT/ML VIAL SQ SCH (23:56)
[2016-08-20 01:23] LABS: Calcium 8.5 mg/dL (8.6-10.8); Magnesium 2.3 mg/dL (1.6-2.6)
[2016-08-20 04:10] LABS: Hematocrit 37.8 % (35.3-44.9); Hemoglobin 11.5 g/dL (11.5-15.4); Mean Corpuscular HGB Conc 30.4 g/dL (31.6-35.5); Mean Corpuscular Hemoglobin 27.6 pg (28.0-33.3); Mean Corpuscular Volume 90.6 fL (83.0-100.0); Mean Platelet Volume 12.2 fL (9.4-12.4); Platelet Count 170 K/mcL (140-400); Red Blood Count 4.17 M/mcL (3.82-4.97); Red Cell Distribution Width 18.7 % (11.5-14.5)
[2016-08-20 04:21] LABS: Calcium 8.6 mg/dL (8.6-10.8); Potassium 4.4 mEq/L (3.5-4.5)
[2016-08-20 04:51] LABS: Lymphocytes # 1.7 K/mcL (0.6-4.6); Neutrophils # 14.1 K/mcL (1.6-8.9); Platelet Estimate Normal (Normal)
[2016-08-20] MEDS ORDERED: Lactulose Oral Soln 20 GM/30 ML UDC PO ONE (04:53)
[2016-08-20] MEDS ORDERED: Vancomycin 750 MG in D5% in Water 250 ML IVPB SCH (05:00)
[2016-08-20] MEDS: Aztreonam 1,000 MG in D5% in Water (Mini-Bag+) 100 ML IVPB SCH ×2 (05:52→18:27)
[2016-08-20] MEDS: Levofloxacin 250 MG/50 ML 250 MG/50 ML BAG IVPB SCH ×2 (05:52→06:53)
[2016-08-20] MEDS: *HR* Heparin 5,000 UNIT/ML VIAL SQ SCH ×2 (05:53→18:27)
[2016-08-20] MEDS ORDERED: Vancomycin 1,000 MG in D5% in Water 250 ML IVPB ONE (06:00)
[2016-08-20] MEDS: D5% in 0.45% NACL w KCl 10 MEQ/1,000 ML MLS IVC SCH ×2 (06:42→20:16)
[2016-08-20 08:08] LABS: Calcium 8.5 mg/dL (8.6-10.8); Potassium 4.3 mEq/L (3.5-4.5)
[2016-08-20] MEDS: Divalproex Sodium 125 MG CAPSULE PO SCH ×3 (08:10→20:17)
[2016-08-20] MEDS: Lactobacillus 1 EACH CAP.SPRINK PO SCH ×2 (08:10→20:17)
--- NOTE | 2016-08-20 08:42 | Internal Med Progress Note ---
Date of Encounter: 08/20/16 Time of Encounter: 08:38 - Assessment and plan (1) Acute metabolic encephalopathy Current Visit: Yes Status: Acute Assessment and plan: felisha Rivas is a 86-year-o who was admitted for altered mental status with preliminary diagnosis of pneuand lung nodule being demonstrated with site of possible pancreatic cyst shown on CT abdomen.decided that patient sodium was noted to be 162with elevated creatinine but has mainly due to dehydration. She has been placed on hypoosmol and her Lasix is on hold for now. Ultrasound of thyroid nodule is as well as pulmonary consult. She is currently started on vancomycin aztreonam and Levaquinby night physician. (2) Bacterial pneumonia Current Visit: Yes Status: Acute Assessment and plan: cT chest showed right-sided pneumonia and some nodule on the lleft side. IV vancomycin and Levaquin and Aztreonam has been started. Blood cultures pending. WBC count which was initially 20,000 S come down to 16,000. We will continue to keep an eye on her CBC in mental status. In ER she did have a lumbar p and the CSF does not yield any signs of infection. (3) Hypernatremia Current Visit: Yes Status: Acute Assessment and plan: suspect secondary to poor by mouth intake and Lasix combination Plan to give hypo-hronic fluid and keep an eye on her BMP which will be checked every 6 hourfor now (4) Acute kidney injury Current Visit: Yes Status: Acute Assessment and plan: main cause seems like prerenal azotemia which could be secondary to poor by mouth intake and Lasix combination Plan to give hypo-hronic fluid and keep an eye on her BMP which will be checked every 6 hourfor now (5) Dehydration Current Visit: Yes Status: Acute Assessment and plan: suspect secondary to poor by mouth intake and Lasix combination Plan to give hypo-hronic fluid and keep an eye on her BMP which will be checked every 6 hourfor now (6) DVT prophylaxis Current Visit: Yes Status: Acute Assessment and plan: she is on heparin and mechanical devices (7) Solitary thyroid nodule Current Visit: Yes Status: Acute Assessment and plan: Ultrasound pending order thyroidfunction test (8) Decubitus ulcer of ankle, stage 1 Current Visit: Yes Status: Acute Assessment and plan: patient has a stage I decubitus ulcer on right heel presentsince admission Qualifiers: Laterality: right Qualified Code(s): L89.511 - Pressure ulcer of right ankle, stage 1 - Subjective Interval history: Ms. Leeann Rivas is a 86-year-o who was admitted for altered mental status with preliminary diagnosis of pneuand lung nodule being demonstrated with site of possible pancreatic cyst shown on CT abdomen.decided that patient sodium was noted to be 162with elevated creatinine but has mainly due to dehydration. She has been placed on hypoosmol and her Lasix is on hold for now. Ultrasound of thyroid nodule is as well as pulmonary consult. She is currently started on vancomycin aztreonam and Levaquinby night physician. patient was seen this morning and she is well awake According to nursing staff she is singing and talking to herself which is according She does not answer any question and does not follow any commands but this is again her baseline. She does not appear in any sort of disc - Constitutional Vitals: Temp Pulse Resp BP Pulse Ox 98.0 F 97 16 135/81 100 08/20/16 07:07 08/20/16 07:07 08/20/16 07:07 08/20/16 07:07 08/20/16 07:07 General appearance: Present: A&O X 0 - Head Head exam: Present: atraumatic, normocephalic - Eye Eye exam: Present: PERRL, conjuntiva pink, sclera anicteric Pupils: Present: PERRL - Neck Neck exam general surgery: Present: supple, trachea midline. Absent: lymphadenopathy - Respiratory Respiratory exam: Present: CTAB. Absent: accessory muscle use, rales, rhonchi, wheezes - Cardiovascular Cardiovascular exam: Present: RRR, +S1, +S2. Absent: diastolic murmur, gallop, rubs, systolic murmur - GI/Abdominal GI/Abdominal exam: Present: normal bowel sounds, soft, no peritoneal signs. Absent: distended, tenderness - Extremities Exam Extremities exam: Present: warm, radial pulses palpable and symetrical. Absent : calf tenderness, cyanotic, pedal edema Additional comments: at the right heel patient has decubitus ulcerwhich is present on admission - Neurological Exam Neurological exam: Absent: pronater drift, facial droop, speech deficit Additional comments: patient is pleasantlyconfused and she does not follow any commandsneither does she answer any questibut she is awake and seems quite comfortab and at her baseline. She is moving all extremities. Plantars downward bilaterally Internal Medicine: Result - Labs CBC & Chem 7: 08/20/16 03:56 08/20/16 12:00 Labs: Short CBC 08/20/16 Range/Units 03:56 WBC 16.8 H (4.3-11.1) K/mcL Hgb 11.5 (11.5-15.4) g/dL Hct 37.8 (35.3-44.9) % Plt Count 170 (140-400) K/mcL Neutrophils # 14.1 H (1.6-8.9) K/mcL BMP 08/20/16 08/20/16 08/20/16 00:41 03:56 07:49 Sodium 160 H* 160 H* 157 H Potassium 4.0 4.4 4.3 Chloride 119 H 117 H 115 H Carbon Dioxide 33 H 36 H 35 H BUN 51 H 49 H 47 H Creatinine 1.27 H 1.32 H 1.33 H Glucose 95 89 208 H Calcium 8.5 L 8.6 8.5 L - Impressions Impressions Abdomen/Pelvis CT 08/19/16 21:10 IMPRESSION: There are multiple areas of ground-glass and consolidative opacity within the lung concerning for multifocal pneumonia. Several of these areas are more nodular in appearance. Follow-up to resolution recommended to exclude underlying lung lesions. There is a more dense area of consolidation in the right upper lung which is somewhat spiculated in appearance. Air bronchograms are seen extending through this and suggesting that this is infectious rather than malignant. Short-term follow-up is recommended. Heterogeneous left thyroid containing a 2 cm nodule some calcifications. Thyroid ultrasound recommended for further evaluation. A large amount of stool is seen throughout the colon and rectum consistent constipation. No acute intra-abdominal or intrapelvic abnormality on limited exam due to motion. There appears to be an area of low-attenuation within the proximal pancreatic body. This is concerning for a cystic pancreatic lesion. Follow-up recommended. Managing Incidental Thyroid Nodule Detected at CT or MRI or US 1. Further evaluation by thyroid Ultrasound recommended for these incidental nodules: Patient Age 18 years or less - Any nodule. Patient Age 19-34 years old - Nodule 1 cm in size or greater Patient Age 35 years or more - Nodule 1.5 cm in size or greater 2. Follow up thyroid ultrasound also recommend in these scenarios -Solitary nodule with high risk imaging features (locally invasive nodule or suspicious lymph nodes) -Any nodule in a heterogeneous enlarged thyroid gland 3. NO further imaging is recommended in the following scenarios -No f/u imaging is recommended for ITNs not meeting the above criteria. -No US or f/u recommended for ITNs without high risk features in pts. with limited life expectancy or significant co-morbidities, unless clinically warranted. Note: These recommendations do not apply to pts. w/ increased risk for thyroid cancer or pts. with symptomatic thyroid disease. Recommendations for f/u of Incidental Thyroid Nodules (ITN) found on CT, MR, NM and Extrathyroidal US are based upon the ACR white paper and Elliott 3-tiered system for managing ITNs: J Am Keo Radiol. 2015 Apr;12(2): 143-50 D/ / Coleen Thompson MD / Coleen Thompson MD Interpreting Provider: Coleen Thompson MD Chest CT 08/19/16 21:10 IMPRESSION: There are multiple areas of ground-glass and consolidative opacity within the lung concerning for multifocal pneumonia. Several of these areas are more nodular in appearance. Follow-up to resolution recommended to exclude underlying lung lesions. There is a more dense area of consolidation in the right upper lung which is somewhat spiculated in appearance. Air bronchograms are seen extending through this and suggesting that this is infectious rather than malignant. Short-term follow-up is recommended. Heterogeneous left thyroid containing a 2 cm nodule some calcifications. Thyroid ultrasound recommended for further evaluation. A large amount of stool is seen throughout the colon and rectum consistent constipation. No acute intra-abdominal or intrapelvic abnormality on limited exam due to motion. There appears to be an area of low-attenuation within the proximal pancreatic body. This is concerning for a cystic pancreatic lesion. Follow-up recommended. Managing Incidental Thyroid Nodule Detected at CT or MRI or US 1. Further evaluation by thyroid Ultrasound recommended for these incidental nodules: Patient Age 18 years or less - Any nodule. Patient Age 19-34 years old - Nodule 1 cm in size or greater Patient Age 35 years or more - Nodule 1.5 cm in size or greater 2. Follow up thyroid ultrasound also recommend in these scenarios -Solitary nodule with high risk imaging features (locally invasive nodule or suspicious lymph nodes) -Any nodule in a heterogeneous enlarged thyroid gland 3. NO further imaging is recommended in the following scenarios -No f/u imaging is recommended for ITNs not meeting the above criteria. -No US or f/u recommended for ITNs without high risk features in pts. with limited life expectancy or significant co-morbidities, unless clinically warranted. Note: These recommendations do not apply to pts. w/ increased risk for thyroid cancer or pts. with symptomatic thyroid disease. Recommendations for f/u of Incidental Thyroid Nodules (ITN) found on CT, MR, NM and Extrathyroidal US are based upon the ACR white paper and Elliott 3-tiered system for managing ITNs: J Am Keo Radiol. 2015 Apr;12(2): 143-50 D/ / Coleen Thompson MD / Coleen Thompson MD Interpreting Provider: Coleen Thompson MD Consult Discharge Plan - Plan Referrals: NO,PCP [Primary Care Provider] -
[2016-08-20] MEDS ORDERED: Furosemide 40 MG TABLET PO SCH (09:00)
[2016-08-20] MEDS ORDERED: NON-FORMULARY MEDICATION 1 EACH EACH (Lactose-Reduced Food [Ensure Plus] 1 BOTTLE) PO SCH (09:00)
--- NOTE | 2016-08-20 09:37 | Pulmonology Consult Note ---
<Tushar White - Last Filed: 08/20/16 11:01> Date of Encounter: 08/20/16 Time of Encounter: 09:30 Assessment and Plan (1) Abnormal CT of the chest Current Visit: Yes Status: Acute 86 F hx of alzheimer's disease, colon cancer, remote hx of stomach cancer presents from [facility] for change in mental status. Patient is found to be dehydrated with hypernatremia, martín. CT chest shows multiple consolidation opacities with ground glass concerning for multifocal pneumonia and also a dense consolidation in right upper love, and 2cm nodule on left thyroid. With hx of colon cancer, remote hx of stomach cancer cannot rule out malignancy as etiology of multiple consolidations seen on Chest CT, patient is a former smoker. Thyroid US pending. Due to patients multiple comorbidities the risk of an invasive procedure outweighs the benefit. Recommend continuing antibiotics to treat community acquired pneumonia. Continue supplemental oxygen. (2) Bacterial pneumonia Current Visit: Yes Status: Acute community acquired pneumonia 10% bands CT chest multifocal pneumonia continue levaquin and aztreonam: change antiboitics upon culture sensitivites (3) Altered mental status Current Visit: Yes Status: Acute 2nd to dehydration, hypernatremia, pneumonia Qualifiers: Altered mental status type: unspecified Qualified Code(s): R41.82 - Altered mental status, unspecified History of Present Illness Consult date: 08/20/16 Requesting physician: Ilia Oates Reason for consult: abnormal CXR/CT (pulmonary nodule) Chief complaint: AMS History of present illness: 78 y/o F presented from [facility] for worsening of baseline mental status. Hx obtained from EMR as patient is alert oriented x 0. At baseline patient is talkative and mumbles words. Patient was found to have leukocytosis, and underwent lumbar puncture which was negative. She was found to be hypernatremic, in martín. Patient underwent CT Chest and abdomen. CT chest showed multiple areas of lung with ground-glass opacitiy with consolidation possible multifocal pneumonia, however right upper lobe consolidation has more nodular appearance. patient started on levaquin for community acquired pnumonia. She has hx of colon cancer, stomach cancer as seen in [facility] office visit notes however there is no detailed history of this. Furthermore, she has history of begning pancreatic tumor and pancreatic insufficiency. Past Med Surg Social Fam HX - Past Medical History Medical history: cancer (history of colon cancer), COPD, dementia, GERD, hepatitis, hyperlipidemia, hypertension, migraine, osteoporosis, other Psychiatric history: anxiety, depression, other - Past Surgical History Surgical History: orthopedic, other - Social History Smoking Status: Former smoker Drug use: none Medications and Allergies Amino Acids/Protein Hydrolys [Pro-Stat Awc Liquid] 30 ml PO DAILY 08/19/16 [ History] Carvedilol [Coreg] 6.25 mg PO BIDWM 08/19/16 [History] Clopidogrel [Plavix] 75 mg PO DAILY 08/19/16 [History] Cyclobenzaprine [Flexeril] 10 mg PO Q8H PRN 08/19/16 [History] Diphenoxylate/Atropine [Lomotil 2.5 mg/0.025 mg] 1 tab PO Q6H PRN 08/19/16 [ History] Divalproex Sodium [Depakote Sprinkle] 250 mg PO TID 08/19/16 [History] Furosemide [Lasix] 20 mg PO DAILY PRN 08/19/16 [History] Furosemide [Lasix] 40 mg PO DAILY 08/19/16 [History] Lactose-Reduced Food [Ensure Plus] 1 bottle PO DAILY 08/19/16 [History] Lipase/Protease/Amylase [Creon Dr 24,000 Units Capsule] 1 each PO TID 08/19/16 [ History] Melatonin [Melatin] 6 mg PO HS 08/19/16 [History] Memantine [Namenda] 5 mg PO HS 08/19/16 [History] Methyl Salicylate/Menthol [Cold & Hot Pain Relief [place]] 1 appl TP Q12H PRN 08/19 [History] Mirtazapine 7.5 mg PO HS 08/19/16 [History] Multivitamin-Min/Iron/FA/Vit K [Multi-Day Plus Minerals Tablet] 1 each PO DAILY 08/19/16 [History] Nystatin POWDER [Nystop] 1 appl TP BID PRN 08/19/16 [History] Potassium Chloride [Klor-Con 10] 20 meq PO DAILY 08/19/16 [History] Pravastatin Sodium [Pravachol] 20 mg PO HS 08/19/16 [History] Quetiapine Fumarate [SEROquel] 25 mg PO HS 08/19/16 [History] RisperiDONE [Risperdal] 0.5 mg PO BID 08/19/16 [History] Tramadol HCl [Ultram] 50 mg PO Q4H 08/19/16 [History] Tramadol HCl [Ultram] 50 mg PO Q4H PRN 08/19/16 [History] Allergies acetaminophen Allergy (Mild, Verified 06/09/15 13:00) Rash aspirin [ASA] Allergy (Verified 06/09/15 13:00) Rash bacitracin Allergy (Verified 06/09/15 13:00) Rash Cefadroxil Allergy (Verified 06/09/15 13:00) Rash cephalexin Allergy (Verified 08/19/16 14:56) See Comments iodine Allergy (Verified 08/19/16 14:56) See Comments Penicillins Allergy (Verified 08/19/16 14:56) See Comments ROS unobtainable: due to mental status All Systems: A 10-system review of systems was performed and is negative for pertinent findings except as documented above in the HPI. Physical Examination Vital Signs: Vital Signs, Last 4 Hours Temp Pulse Resp BP Pulse Ox 08/20/16 07:07 98.0 F 97 16 135/81 100 General appearance: other (does not open eyes, some mumbling during exam, not oreinted to self, place, time ) Eyes: nonicteric, other (patient will not open eyes when asked, history of right eye blindness) Effort: normal Auscultation: bilateral: clear Cardiovascular: regular rate and rhythm Gastrointestinal: normoactive bowel sounds, soft, non-tender Integumentary: normal Extremities: no cyanosis, no edema, no clubbing Gait: other (wheelchair/bed bound ) unable to assess due to mental status other (unable to assess due to mental status) Results - Laboratory Findings CBC and BMP: 08/20/16 03:56 08/20/16 07:49 Abnormal lab findings: Abnormal lab results WBC 16.8 K/mcL (4.3-11.1) H 08/20/16 03:56 MCH 27.6 pg (28.0-33.3) L 08/20/16 03:56 MCHC 30.4 g/dL (31.6-35.5) L 08/20/16 03:56 RDW 18.7 % (11.5-14.5) H 08/20/16 03:56 Band Neutrophils % 10.0 % (0-4) H 08/20/16 03:56 Neutrophils # 14.1 K/mcL (1.6-8.9) H 08/20/16 03:56 Nucleated RBCs/100 WBC 0.1 /100 WBC (0) H 08/19/16 16:02 Sodium 157 mEq/L (136-145) H 08/20/16 07:49 Chloride 115 mEq/L (98-109) H 08/20/16 07:49 Carbon Dioxide 35 mEq/L (19-29) H 08/20/16 07:49 BUN 47 mg/dL (7-20) H 08/20/16 07:49 Creatinine 1.33 mg/dL (0.57-1.11) H 08/20/16 07:49 Est GFR ( Amer) 46 (> 60) L 08/20/16 07:49 Est GFR (Non-Af Amer) 38 (> 60) L 08/20/16 07:49 BUN/Creatinine Ratio 35 (6-26) H 08/20/16 07:49 Glucose 208 mg/dL (70-99) H 08/20/16 07:49 Calculated Osmolality 342 (280-300) H 08/20/16 07:49 Calcium 8.5 mg/dL (8.6-10.8) L 08/20/16 07:49 Albumin 2.4 g/dL (3.5-5.0) L 08/19/16 16:02 Globulin 5.5 g/dL (2.4-3.5) H 08/19/16 16:02 Albumin/Globulin Ratio 0.4 (1.1-2.2) L 08/19/16 16:02 CSF RBC 0.003 M/mcL (0.000-0.002) H 08/19/16 18:31 CSF Glucose 88 mg/dL (40-70) H 08/19/16 18:31 - Clinical Findings Intake & Output: Intake & Output 08/19/16 08/20/16 08/20/16 23:59 07:59 15:59 Intake Total 100 / 100 40 / 40 Balance 100 / 100 40 / 40 Weight 55.877 kg Consult Discharge Plan - Plan Referrals: NO,PCP [Primary Care Provider] - <Shereen Suggs M - Last Filed: 08/20/16 12:49> Date of Encounter: 08/20/16 All Systems: A 10-system review of systems was performed and is negative for pertinent findings except as documented above in the HPI. Physical Examination Vital Signs: Vital Signs, Last 4 Hours Temp Pulse Resp BP Pulse Ox 08/20/16 10:46 98.3 F 77 14 114/63 96 Results - Laboratory Findings CBC and BMP: 08/20/16 03:56 08/20/16 12:00 Abnormal lab findings: Abnormal lab results WBC 16.8 K/mcL (4.3-11.1) H 08/20/16 03:56 MCH 27.6 pg (28.0-33.3) L 08/20/16 03:56 MCHC 30.4 g/dL (31.6-35.5) L 08/20/16 03:56 RDW 18.7 % (11.5-14.5) H 08/20/16 03:56 Band Neutrophils % 10.0 % (0-4) H 08/20/16 03:56 Neutrophils # 14.1 K/mcL (1.6-8.9) H 08/20/16 03:56 Nucleated RBCs/100 WBC 0.1 /100 WBC (0) H 08/19/16 16:02 Sodium 157 mEq/L (136-145) H 08/20/16 12:00 Chloride 114 mEq/L (98-109) H 08/20/16 12:00 Carbon Dioxide 34 mEq/L (19-29) H 08/20/16 12:00 BUN 45 mg/dL (7-20) H 08/20/16 12:00 Creatinine 1.27 mg/dL (0.57-1.11) H 08/20/16 12:00 Est GFR ( Amer) 48 (> 60) L 08/20/16 12:00 Est GFR (Non-Af Amer) 40 (> 60) L 08/20/16 12:00 BUN/Creatinine Ratio 35 (6-26) H 08/20/16 12:00 Glucose 109 mg/dL (70-99) H 08/20/16 12:00 Calculated Osmolality 336 (280-300) H 08/20/16 12:00 Albumin 2.4 g/dL (3.5-5.0) L 08/19/16 16:02 Globulin 5.5 g/dL (2.4-3.5) H 08/19/16 16:02 Albumin/Globulin Ratio 0.4 (1.1-2.2) L 08/19/16 16:02 CSF RBC 0.003 M/mcL (0.000-0.002) H 08/19/16 18:31 CSF Glucose 88 mg/dL (40-70) H 08/19/16 18:31 - Clinical Findings Intake & Output: Intake & Output 08/19/16 08/20/16 08/20/16 23:59 07:59 15:59 Intake Total 100 / 100 40 / 40 Balance 100 / 100 40 / 40 Weight 55.877 kg 53.977 kg - Attending Attestation I examined this patient and my medical decision-making was reviewed with the BLACKJACK DEALER/PA/Advanced Practice Nurse/Resident Physician. I agree with the documented findings, disposition and treatment plan as described except to the extent set forth below. Patient seen and examined. Labs, radiology, chart personally reviewed. Agree with resident's history and physical, assessment, plan with following comments: History is very limited due to patient's mental status. Patient was seen and examined with the resident and clearly due to her generalized health condition and I would not recommend any intervention, but to be conservative at this time and treating care with antibiotics is appropriate with pulmonary hygiene with aspiration precautions, then a follow-up images to ensure there is improvement is appropriate for this patient. Thank you very much for consultation and do not hesitate to call for any questions.
[2016-08-20 09:40] LABS: Thyroid Stimulating Hormone 1.539 mcIU/mL (0.350-4.840)
--- NOTE | 2016-08-20 10:41 | Electrocardiograph Report ---
[place] [address] Test Date: 2016-08-19 Pat Name: Leeann Rivas Department: 102 Room: 3A11 Gender: F Speech Language Pathologist Assistant: [id number] : 1930 Requested By: Ilia Oates Order Number: [id number] Reading MD: Nikhil Mills Measurements Intervals [place] Rate: 108 P: 61 TN: 127 QRS: 53 QRSD: 93 T: 51 QT: 314 QTc: 378 Interpretive Statements SINUS TACHYCARDIA ABNORMAL RHYTHM ECG Electronically Signed On 08-20-2016 10:39:30 EDT by Nikhil Mills
[2016-08-20 12:34] LABS: Calcium 9.1 mg/dL (8.6-10.8); Potassium 3.8 mEq/L (3.5-4.5)
[2016-08-20 17:51] LABS: Calcium 8.6 mg/dL (8.6-10.8); Potassium 3.7 mEq/L (3.5-4.5)
[2016-08-20] MEDS: Melatonin 3 MG TABLET PO SCH (20:17)
[2016-08-20 22:29] LABS: Calcium 8.3 mg/dL (8.6-10.8); Potassium 3.5 mEq/L (3.5-4.5)
[2016-08-21 05:11] LABS: Basophils # 0.1 K/mcL (0.0-0.2); Basophils % 0.4 %; Eosinophils # 0.4 K/mcL (0.0-0.6); Eosinophils % 2.2 %; Hematocrit 34.3 % (35.3-44.9); Hemoglobin 10.1 g/dL (11.5-15.4); Immature Granulocytes % 2.5 % (0-4); Lymphocytes # 2.2 K/mcL (0.6-4.6); Lymphocytes % 12.8 %; Mean Corpuscular HGB Conc 29.4 g/dL (31.6-35.5); Mean Corpuscular Hemoglobin 26.5 pg (28.0-33.3); Mean Platelet Volume 11.9 fL (9.4-12.4); Monocytes # 1.6 K/mcL (0.0-1.3); Monocytes % 9.2 %; Neutrophils # 12.8 K/mcL (1.6-8.9); Nucleated Red Blood Cells 0.1 /100 WBC (0); Platelet Count 174 K/mcL (140-400); Red Blood Count 3.81 M/mcL (3.82-4.97); Red Cell Distribution Width 18.6 % (11.5-14.5); Segmented Neutrophils % 72.9 %
[2016-08-21 05:29] LABS: Albumin/Globulin Ratio 0.4 (1.1-2.2); Bilirubin,Total 0.2 mg/dL (0.2-1.2); Calcium 8.3 mg/dL (8.6-10.8); Globulin 4.3 g/dL (2.4-3.5); Potassium 3.7 mEq/L (3.5-4.5)
[2016-08-21 05:30] LABS: Albumin 1.8 g/dL (3.5-5.0); Total Protein 6.1 g/dL (6.0-8.3)
[2016-08-21 06:03] LABS: Vancomycin,Trough 9.4 mcg/mL (10-20)
[2016-08-21] MEDS: *HR* Heparin 5,000 UNIT/ML VIAL SQ SCH ×2 (06:11→17:11)
[2016-08-21] MEDS: Aztreonam 1,000 MG in D5% in Water (Mini-Bag+) 100 ML IVPB SCH (06:12)
[2016-08-21] MEDS ORDERED: Vancomycin 750 MG in D5% in Water 250 ML IVPB ONE (07:57)
[2016-08-21] MEDS: Lactobacillus 1 EACH CAP.SPRINK PO SCH ×2 (08:28→20:42)
[2016-08-21] MEDS: Levofloxacin 250 MG/50 ML 250 MG/50 ML BAG IVPB SCH (08:28)
[2016-08-21] MEDS: Divalproex Sodium 125 MG CAPSULE PO SCH ×3 (08:55→20:42)
--- NOTE | 2016-08-21 09:24 | Pulmonology Progress Note ---
<Tushar White - Last Filed: 08/21/16 09:22> Date of Encounter: 08/21/16 Time of Encounter: 09:22 Assessment and Plan (1) Abnormal CT of the chest Current Visit: Yes Status: Acute CT chest shows multiple consolidation opacities with ground glass concerning for multifocal pneumonia and also a dense consolidation in right upper love, and 2cm nodule on left thyroid. Currently plan is to forgo any invasive procedure as patient has multiple comorbidities. (2) Bacterial pneumonia Current Visit: Yes Status: Acute community acquired pneumonia bandemia resolved CT chest multifocal pneumonia continue O2 via NC SPO2 goal 88-90% continue levaquin change antiboitics upon culture sensitivites Patient high risk for aspiration. Speech consult recommended. (3) Altered mental status Current Visit: Yes Status: Acute 2nd to dehydration, hypernatremia, pneumonia improved. Now at baseline: conversational, alert oriented to self Qualifiers: Altered mental status type: unspecified Qualified Code(s): R41.82 - Altered mental status, unspecified Subjective Principal diagnosis: Multifocal pneumonia Interval history: Patient is more awake, conversational. Follows commands. Alert and oriented to self. Objective PUL Vital signs: Last Vital Signs Temp 98.3 F 08/21/16 07:54 Pulse 78 08/21/16 07:54 Resp 18 08/21/16 07:54 BP 110/56 08/21/16 07:54 Pulse Ox 100 08/21/16 07:54 General appearance: no acute distress Eyes: nonicteric Neck: no lymphadenopathy Effort: normal Auscultation: bilateral: rhonchi (b/l upper lobes) Cardiovascular: regular rate and rhythm Gastrointestinal: normoactive bowel sounds, non-distended Integumentary: normal Extremities: no cyanosis, no edema, no clubbing, other (left above knee amputation. right heel blister. ) mood appropriate Results - Laboratory Findings CBC and BMP: 08/21/16 04:05 08/21/16 04:05 Abnormal lab findings: Abnormal lab results WBC 17.5 K/mcL (4.3-11.1) H 08/21/16 04:05 RBC 3.81 M/mcL (3.82-4.97) L 08/21/16 04:05 Hgb 10.1 g/dL (11.5-15.4) L 08/21/16 04:05 Hct 34.3 % (35.3-44.9) L 08/21/16 04:05 MCH 26.5 pg (28.0-33.3) L 08/21/16 04:05 MCHC 29.4 g/dL (31.6-35.5) L 08/21/16 04:05 RDW 18.6 % (11.5-14.5) H 08/21/16 04:05 Band Neutrophils % 10.0 % (0-4) H 08/20/16 03:56 Neutrophils # 12.8 K/mcL (1.6-8.9) H 08/21/16 04:05 Monocytes # 1.6 K/mcL (0.0-1.3) H 08/21/16 04:05 Nucleated RBCs/100 WBC 0.1 /100 WBC (0) H 08/21/16 04:05 Sodium 153 mEq/L (136-145) H 08/21/16 04:05 Chloride 115 mEq/L (98-109) H 08/21/16 04:05 Carbon Dioxide 32 mEq/L (19-29) H 08/21/16 04:05 BUN 38 mg/dL (7-20) H 08/21/16 04:05 Creatinine 1.21 mg/dL (0.57-1.11) H 08/21/16 04:05 Est GFR ( Amer) 51 (> 60) L 08/21/16 04:05 Est GFR (Non-Af Amer) 42 (> 60) L 08/21/16 04:05 BUN/Creatinine Ratio 31 (6-26) H 08/21/16 04:05 Glucose 114 mg/dL (70-99) H 08/21/16 04:05 Calculated Osmolality 326 (280-300) H 08/21/16 04:05 Calcium 8.3 mg/dL (8.6-10.8) L 08/21/16 04:05 Albumin 1.8 g/dL (3.5-5.0) L D 08/21/16 04:05 Globulin 4.3 g/dL (2.4-3.5) H 08/21/16 04:05 Albumin/Globulin Ratio 0.4 (1.1-2.2) L 08/21/16 04:05 CSF RBC 0.003 M/mcL (0.000-0.002) H 08/19/16 18:31 CSF Glucose 88 mg/dL (40-70) H 08/19/16 18:31 Vancomycin Trough 9.4 mcg/mL (10-20) L 08/21/16 04:05 - Clinical Findings Intake & Output: Intake & Output 08/20/16 08/21/16 08/21/16 23:59 07:59 15:59 Intake Total 1300 / 1300 100 / 100 Output Total 0 / 0 Balance 1300 / 1300 100 / 100 Weight 53.9 kg - VTE Documentation of Mechanical Device: Graduated compression elastic hosiery Consult Discharge Plan - Plan Referrals: NO,PCP [Primary Care Provider] - <Shereen Suggs - Last Filed: 08/21/16 12:22> Date of Encounter: 08/21/16 Objective PUL Vital signs: Last Vital Signs Temp 97.6 F 08/21/16 11:46 Pulse 73 08/21/16 11:46 Resp 18 08/21/16 11:46 BP 114/71 08/21/16 11:46 Pulse Ox 92 08/21/16 11:46 Results - Laboratory Findings CBC and BMP: 08/21/16 04:05 08/21/16 04:05 Abnormal lab findings: Abnormal lab results WBC 17.5 K/mcL (4.3-11.1) H 08/21/16 04:05 RBC 3.81 M/mcL (3.82-4.97) L 08/21/16 04:05 Hgb 10.1 g/dL (11.5-15.4) L 08/21/16 04:05 Hct 34.3 % (35.3-44.9) L 08/21/16 04:05 MCH 26.5 pg (28.0-33.3) L 08/21/16 04:05 MCHC 29.4 g/dL (31.6-35.5) L 08/21/16 04:05 RDW 18.6 % (11.5-14.5) H 08/21/16 04:05 Band Neutrophils % 10.0 % (0-4) H 08/20/16 03:56 Neutrophils # 12.8 K/mcL (1.6-8.9) H 08/21/16 04:05 Monocytes # 1.6 K/mcL (0.0-1.3) H 08/21/16 04:05 Nucleated RBCs/100 WBC 0.1 /100 WBC (0) H 08/21/16 04:05 Sodium 153 mEq/L (136-145) H 08/21/16 04:05 Chloride 115 mEq/L (98-109) H 08/21/16 04:05 Carbon Dioxide 32 mEq/L (19-29) H 08/21/16 04:05 BUN 38 mg/dL (7-20) H 08/21/16 04:05 Creatinine 1.21 mg/dL (0.57-1.11) H 08/21/16 04:05 Est GFR ( Amer) 51 (> 60) L 08/21/16 04:05 Est GFR (Non-Af Amer) 42 (> 60) L 08/21/16 04:05 BUN/Creatinine Ratio 31 (6-26) H 08/21/16 04:05 Glucose 114 mg/dL (70-99) H 08/21/16 04:05 Calculated Osmolality 326 (280-300) H 08/21/16 04:05 Calcium 8.3 mg/dL (8.6-10.8) L 08/21/16 04:05 Albumin 1.8 g/dL (3.5-5.0) L D 08/21/16 04:05 Globulin 4.3 g/dL (2.4-3.5) H 08/21/16 04:05 Albumin/Globulin Ratio 0.4 (1.1-2.2) L 08/21/16 04:05 CSF RBC 0.003 M/mcL (0.000-0.002) H 08/19/16 18:31 CSF Glucose 88 mg/dL (40-70) H 08/19/16 18:31 Vancomycin Trough 9.4 mcg/mL (10-20) L 08/21/16 04:05 - Microbiology Findings Microbiology Findings: Microbiology, Last 48 Hours 08/20/16 00:41 Blood Culture - Preliminary Peripheral Venipuncture No growth. 08/20/16 00:41 Blood Culture - Preliminary Peripheral Venipuncture No growth. - Clinical Findings Intake & Output: Intake & Output 08/20/16 08/21/16 08/21/16 23:59 07:59 15:59 Intake Total 1300 / 1300 100 / 100 1220 / 1220 Output Total 0 / 0 Balance 1300 / 1300 100 / 100 1220 / 1220 Weight 53.9 kg - Attending Attestation I examined this patient and my medical decision-making was reviewed with the CABLE WIRER/PA/Advanced Practice Nurse/Resident Physician. I agree with the documented findings, disposition and treatment plan as described except to the extent set forth below. Patient seen and examined. Labs, radiology, chart personally reviewed. Agree with resident's history and physical, assessment, plan with following comments: Patient is confused and over all more alert today, but not oriented. Same recommendations regarding the lung nodules, no intervention. If she doesn't have speech evaluation, yet, then recommend to do that, she is high risk of aspiration.
--- NOTE | 2016-08-21 10:14 | Internal Med Progress Note ---
Date of Encounter: 08/21/16 Time of Encounter: 10:10 - Assessment and plan (1) Acute metabolic encephalopathy Current Visit: Yes Status: Acute Assessment and plan: felisha Rivas is a 86-year-o who was admitted for altered mental status with preliminary diagnosis of pneuand lung nodule being demonstrated with site of possible pancreatic cyst shown on CT abdomen.decided that patient sodium was noted to be 162with elevated creatinine but has mainly due to dehydration. She has been placed on hypoosmol and her Lasix is on hold for now. Ultrasound of thyroid nodule is as well as pulmonary consult. She is currently started on vancomycin aztreonam and Levaquinby night physician. Encephalopathy is perhaps due to electrolyte imbalance, dehydration and pneumonia. With treatment she is improving. Patient has underlying dementia (2) Bacterial pneumonia Current Visit: Yes Status: Acute Assessment and plan: cT chest showed right-sided pneumonia and some nodule on the lleft side. IV vancomycin and Levaquin and Aztreonam has been started. Blood cultures pending. WBC count which was initially 20,000 S come down to 16,000. We will continue to keep an eye on her CBC in mental status. In ER she did have a lumbar p and the CSF does not yield any signs of infection. White count has a rising to 17,000 while cultures are negative. Considering the fact that she has multilobular consolidation I will add Flagyl and will DC aztreonam she will be on vancomycin and Levaquin and Flagyl combination. (3) Hypernatremia Current Visit: Yes Status: Acute Assessment and plan: suspect secondary to poor by mouth intake and Lasix combination with hydration nicely coming down (4) Acute kidney injury Current Visit: Yes Status: Acute Assessment and plan: main cause seems like prerenal azotemia which could be secondary to poor by mouth intake and Lasix combination patient is slowly improving (5) Dehydration Current Visit: Yes Status: Acute Assessment and plan: suspect secondary to poor by mouth intake and Lasix combination Plan to give hypo-hronic fluid and keep an eye on her BMP . She is slowly improving (6) DVT prophylaxis Current Visit: Yes Status: Acute Assessment and plan: she is on heparin and mechanical devices (7) Solitary thyroid nodule Current Visit: Yes Status: Acute Assessment and plan: Ultrasound ultrasound shows that she has 2 thyroid nodule 1 inch in each lobe and the largest one is 2.2 cm. No other features which could suggest malignancy. Her TSH is normal 1.5. Considering her age and significant comorbidity at this time as noted by pulmonology also no interventional procedure would be tried (8) Decubitus ulcer of ankle, stage 1 Current Visit: Yes Status: Acute Assessment and plan: patient has a stage I decubitus ulcer on right heel presentsince admission previously she had decubitus ulcer on her sacrum. Qualifiers: Laterality: right Qualified Code(s): L89.511 - Pressure ulcer of right ankle, stage 1 - Subjective Interval history: Ms. Leeann Rivas is a 86-year-o who was admitted for altered mental status with preliminary diagnosis of pneuand lung nodule being demonstrated with site of possible pancreatic cyst shown on CT abdomen.decided that patient sodium was noted to be 162with elevated creatinine but has mainly due to dehydration. She has been placed on hypoosmol and her Lasix is on hold for now. Ultrasound of thyroid nodule is as well as pulmonary consult. She is currently started on vancomycin aztreonam and Levaquinby night physician. patient was seen this morning and she is well awake According to nursing staff she is singing and talking to herself which is according She does not answer any question and does not follow any commands but this is again her baseline. She does not appear in any sort of discomfort 08/21 patient has improved significantly and seems like she has returned to her baseline as she is awake though due to her advanced dementia and she would not follow any commands or would not communicate with us. According to nursing staff patient told them her name and asked where she is and felt very surprise that did she ended up in Hospital. She does not appear in any sort of discomfort. Her creatinine and electrolytes are coming down nicely as we are hydrating her cautiously. Her WBC count has rising to 17,000 and I will add Flagyl to vancomycin and Levaquin regimen while taking out aztreonem simply because she came from a [place] [facility] and has multifocal and multilobar pneumonia with risk of aspiration. Her swallowing is studies already completed and she has been recommended to have pureed diet and nectar thick liquids. Anticipate discharge in 1-2 days - Constitutional Vitals: Temp Pulse Resp BP Pulse Ox 98.3 F 78 18 110/56 100 08/21/16 07:54 08/21/16 07:54 08/21/16 07:54 08/21/16 07:54 08/21/16 07:54 General appearance: Present: A&O X 0 - Head Head exam: Present: atraumatic, normocephalic - Eye Eye exam: Present: PERRL, conjuntiva pink, sclera anicteric Pupils: Present: PERRL - Neck Neck exam general surgery: Present: supple, trachea midline. Absent: lymphadenopathy - Respiratory Respiratory exam: Present: CTAB. Absent: accessory muscle use, rales, rhonchi, wheezes - Cardiovascular Cardiovascular exam: Present: RRR, +S1, +S2. Absent: diastolic murmur, gallop, rubs, systolic murmur - GI/Abdominal GI/Abdominal exam: Present: normal bowel sounds, soft, no peritoneal signs. Absent: distended, tenderness - Extremities Exam Extremities exam: Present: warm, radial pulses palpable and symetrical. Absent : calf tenderness, cyanotic, pedal edema - Neurological Exam Neurological exam: Present: no focal deficits. Absent: pronater drift, facial droop, speech deficit Additional comments: Her sensorium seems to be improving she is awake and has a started communicating with nurses. - Skin Skin exam: Present: dry, intact Additional comments: She has right heel stage I bedsore. Internal Medicine: Result - Labs CBC & Chem 7: 08/21/16 04:05 08/21/16 04:05 Labs: Short CBC 08/21/16 Range/Units 04:05 WBC 17.5 H (4.3-11.1) K/mcL Hgb 10.1 L (11.5-15.4) g/dL Hct 34.3 L (35.3-44.9) % Plt Count 174 (140-400) K/mcL Neutrophils # 12.8 H (1.6-8.9) K/mcL BMP 08/20/16 08/20/16 08/20/16 12:00 17:30 21:51 Sodium 157 H 156 H 154 H Potassium 3.8 3.7 3.5 Chloride 114 H 115 H 116 H Carbon Dioxide 34 H 35 H 30 H BUN 45 H 43 H 42 H Creatinine 1.27 H 1.24 H 1.24 H Glucose 109 H 130 H 146 H Calcium 9.1 8.6 8.3 L 08/21/16 04:05 Sodium 153 H Potassium 3.7 Chloride 115 H Carbon Dioxide 32 H BUN 38 H Creatinine 1.21 H Glucose 114 H Calcium 8.3 L Liver Function 08/21/16 Range/Units 04:05 Total Bilirubin 0.2 (0.2-1.2) mg/dL AST 32 (5-34) Units/L ALT 18 (0-55) Units/L Alkaline Phosphatase 72 (38-126) Units/L Albumin 1.8 L D (3.5-5.0) g/dL - Impressions Impressions Thyroid Ultrasound 08/20/16 11:00 IMPRESSION: 1. Two thyroid nodules, the largest of which measures 2.2 cm in the left inferior lobe. The left nodule is amenable to fine-needle aspiration, however, patient was unable to tolerate entire thyroid exam due to dementia/lack of cooperation. Fine-needle aspiration would be difficult and the nodule is of doubtful clinical significance in this 86-year-old patient. D/ / 08/20/2016 12:03:44 Pennie Moreno MD / stuart Interpreting Provider: Pennie Moreno MD - VTE Documentation of Mechanical Device: Graduated compression elastic hosiery Consult Discharge Plan - Plan Referrals: NO,PCP [Primary Care Provider] -
[2016-08-21] MEDS: D5% in 0.45% NACL w KCl 10 MEQ/1,000 ML MLS IVC SCH (11:29)
[2016-08-21] MEDS: MetroNIDAZOLE 500 MG/100 ML 500 MG/100 ML BAG IVPB SCH (15:40)
[2016-08-21] MEDS: Melatonin 3 MG TABLET PO SCH (20:41)
[2016-08-22] MEDS: MetroNIDAZOLE 500 MG/100 ML 500 MG/100 ML BAG IVPB SCH ×4 (00:15→23:49)
[2016-08-22 04:39] LABS: Basophils # 0.1 K/mcL (0.0-0.2); Basophils % 0.5 %; Eosinophils # 0.2 K/mcL (0.0-0.6); Eosinophils % 1.5 %; Hematocrit 34.5 % (35.3-44.9); Hemoglobin 10.5 g/dL (11.5-15.4); Lymphocytes # 1.9 K/mcL (0.6-4.6); Lymphocytes % 13.6 %; Mean Corpuscular HGB Conc 30.4 g/dL (31.6-35.5); Mean Corpuscular Hemoglobin 26.8 pg (28.0-33.3); Monocytes # 1.1 K/mcL (0.0-1.3); Monocytes % 7.6 %; Neutrophils # 9.9 K/mcL (1.6-8.9); Platelet Count 177 K/mcL (140-400); Red Blood Count 3.92 M/mcL (3.82-4.97); Red Cell Distribution Width 18.1 % (11.5-14.5); Segmented Neutrophils % 71.8 %
[2016-08-22 04:56] LABS: Alanine Aminotransferase 21 Units/L (0-55); Albumin/Globulin Ratio 0.4 (1.1-2.2); Alkaline Phosphatase 71 Units/L (38-126); Aspartate Amino Transferase 34 Units/L (5-34); BUN/Creatinine Ratio 28 (6-26); Bilirubin,Total 0.3 mg/dL (0.2-1.2); Calcium 8.2 mg/dL (8.6-10.8); Carbon Dioxide 31 mEq/L (19-29); Chloride 112 mEq/L (98-109); Globulin 4.2 g/dL (2.4-3.5); Glucose 103 mg/dL (70-99); Osmolality,Calculated 315 (280-300); Potassium 3.3 mEq/L (3.5-4.5); Sodium 150 mEq/L (136-145); Total Protein 5.9 g/dL (6.0-8.3); eGFR For African Americans > 60 (> 60); eGFR For Non-African Americans 56 (> 60)
[2016-08-22 04:57] LABS: Albumin 1.7 g/dL (3.5-5.0); Blood Urea Nitrogen 27 mg/dL (7-20)
[2016-08-22] MEDS: *HR* Heparin 5,000 UNIT/ML VIAL SQ SCH ×2 (05:45→17:47)
[2016-08-22] MEDS: Lactobacillus 1 EACH CAP.SPRINK PO SCH ×2 (08:12→21:31)
[2016-08-22] MEDS: Divalproex Sodium 125 MG CAPSULE PO SCH ×3 (08:13→21:31)
[2016-08-22] MEDS: Levofloxacin 250 MG/50 ML 250 MG/50 ML BAG IVPB SCH (08:26)
[2016-08-22] MEDS: Vancomycin 750 MG in D5% in Water 250 ML IVPB SCH (11:36)
[2016-08-22] MEDS ORDERED: Potassium Chloride Elixir 20 MEQ/15 ML UDC PO ONE (14:54)
--- NOTE | 2016-08-22 14:58 | Internal Med Progress Note ---
Date of Encounter: 08/22/16 Time of Encounter: 14:56 - Assessment and plan (1) Acute metabolic encephalopathy Current Visit: Yes Status: Acute (2) Bacterial pneumonia Current Visit: Yes Status: Acute (3) Hypernatremia Current Visit: Yes Status: Acute (4) Acute kidney injury Current Visit: Yes Status: Acute (5) Dehydration Current Visit: Yes Status: Acute (6) DVT prophylaxis Current Visit: Yes Status: Acute (7) Solitary thyroid nodule Current Visit: Yes Status: Acute (8) Decubitus ulcer of ankle, stage 1 Current Visit: Yes Status: Acute Qualifiers: Laterality: right Qualified Code(s): L89.511 - Pressure ulcer of right ankle, stage 1 - Subjective Interval history: Ms. Leeann Rivas is a 86-year-o who was admitted for altered mental status with preliminary diagnosis of pneuand lung nodule being demonstrated with site of possible pancreatic cyst shown on CT abdomen.decided that patient sodium was noted to be 162with elevated creatinine but has mainly due to dehydration. She has been placed on hypoosmol and her Lasix is on hold for now. Ultrasound of thyroid nodule is as well as pulmonary consult. She is currently started on vancomycin aztreonam and Levaquinby night physician. patient was seen this morning and she is well awake According to nursing staff she is singing and talking to herself which is according She does not answer any question and does not follow any commands but this is again her baseline. She does not appear in any sort of discomfort 08/21 &16 patient has improved significantly and seems like she has returned to her baseline as she is awake though due to her advanced dementia and she would not follow any commands or would not communicate with us. According to nursing staff patient told them her name and asked where she is and felt very surprise that did she ended up in Hospital. She does not appear in any sort of discomfort. Her creatinine and electrolytes are coming down nicely as we are hydrating her cautiously. Her WBC count has rising to 17,000 and I will add Flagyl to vancomycin and Levaquin regimen while taking out aztreonem simply because she came from a snf and has multifocal and multilobar pneumonia with risk of aspiration. Her swallowing is studies already completed and she has been recommended to have pureed diet and nectar thick liquids. Anticipate discharge in 1-2 days - Constitutional Vitals: Temp Pulse Resp BP Pulse Ox 97.6 F 71 16 132/71 94 08/22/16 10:55 08/22/16 10:55 08/22/16 10:55 08/22/16 10:55 08/22/16 10:55 General appearance: Present: A&O X 0 - Head Head exam: Present: atraumatic, normocephalic - Eye Eye exam: Present: PERRL, conjuntiva pink, sclera anicteric Pupils: Present: PERRL - Neck Neck exam general surgery: Present: supple, trachea midline. Absent: lymphadenopathy - Respiratory Respiratory exam: Present: CTAB. Absent: accessory muscle use, rales, rhonchi, wheezes - Cardiovascular Cardiovascular exam: Present: RRR, +S1, +S2. Absent: diastolic murmur, gallop, rubs, systolic murmur - GI/Abdominal GI/Abdominal exam: Present: normal bowel sounds, soft, no peritoneal signs. Absent: distended, tenderness - Extremities Exam Extremities exam: Present: warm, radial pulses palpable and symetrical. Absent : calf tenderness, cyanotic, pedal edema Additional comments: Right heel decubitus ulcer stage I - Neurological Exam Neurological exam: Absent: pronater drift, facial droop, speech deficit Additional comments: Well awake and responsive and no following commands though only simply wants. She can tell me her name and she does recognize that she is not in her usual usual habitat.appears pleasant and somewhat cooperative. Moving all extremities - Skin Skin exam: Present: dry, intact Internal Medicine: Result - Labs CBC & Chem 7: 08/22/16 04:25 08/22/16 04:25 Labs: Short CBC 08/22/16 Range/Units 04:25 WBC 13.8 H (4.3-11.1) K/mcL Hgb 10.5 L (11.5-15.4) g/dL Hct 34.5 L (35.3-44.9) % Plt Count 177 (140-400) K/mcL Neutrophils # 9.9 H (1.6-8.9) K/mcL BMP 08/22/16 04:25 Sodium 150 H Potassium 3.3 L Chloride 112 H Carbon Dioxide 31 H BUN 27 H D Creatinine 0.95 Glucose 103 H Calcium 8.2 L Liver Function 08/22/16 Range/Units 04:25 Total Bilirubin 0.3 (0.2-1.2) mg/dL AST 34 (5-34) Units/L ALT 21 (0-55) Units/L Alkaline Phosphatase 71 (38-126) Units/L Albumin 1.7 L (3.5-5.0) g/dL - Impressions Impressions Thyroid Ultrasound 08/20/16 11:00 IMPRESSION: 1. Two thyroid nodules, the largest of which measures 2.2 cm in the left inferior lobe. The left nodule is amenable to fine-needle aspiration, however, patient was unable to tolerate entire thyroid exam due to dementia/lack of cooperation. Fine-needle aspiration would be difficult and the nodule is of doubtful clinical significance in this 86-year-old patient. D/ / 08/20/2016 12:03:44 Pennie Moreno MD / stuart Interpreting Provider: Pennie Moreno MD - VTE Documentation of Mechanical Device: Graduated compression elastic hosiery Consult Discharge Plan - Plan Referrals: NO,PCP [Primary Care Provider] -
[2016-08-22 15:02] LABS: Acinetobacter baumannii by PCR Not Detected (Not Detect); Candida albicans by PCR Not Detected (Not Detect); Candida glabrata by PCR Not Detected (Not Detect); Candida krusei by PCR Not Detected (Not Detect); Candida parapsilosis by PCR Not Detected (Not Detect); Candida tropicalis by PCR Not Detected (Not Detect); Enterococcus by PCR Not Detected (Not Detect); Escherichia coli by PCR Not Detected (Not Detect); Klebsiella oxytoca by PCR Not Detected (Not Detect); Klebsiella pneumoniae by PCR Not Detected (Not Detect); Pseudomonas aeruginosa by PCR Not Detected (Not Detect); Serratia marcescens by PCR Not Detected (Not Detect); Staphylococcus aureus by PCR ***DETECTED*** (Not Detect); Streptococcus agalactiae(B)PCR Not Detected (Not Detect); Streptococcus by PCR Not Detected (Not Detect); Streptococcus pneumoniae PCR Not Detected (Not Detect); Streptococcus pyogenes (A) PCR Not Detected (Not Detect); mecA Methicillin-Resist Gene ***DETECTED*** (Not Detect)
[2016-08-22] MEDS: 0.45 % Sodium Chloride w/KCl 20 MEQ/1,000 ML MLS IVC SCH (15:34)
[2016-08-22] MEDS: Melatonin 3 MG TABLET PO SCH (21:32)
[2016-08-23] MEDS: 0.45 % Sodium Chloride w/KCl 20 MEQ/1,000 ML MLS IVC SCH (02:57)
[2016-08-23 04:59] LABS: Hematocrit 31.2 % (35.3-44.9); Hemoglobin 9.8 g/dL (11.5-15.4); Mean Corpuscular HGB Conc 31.4 g/dL (31.6-35.5); Mean Corpuscular Hemoglobin 26.9 pg (28.0-33.3); Mean Corpuscular Volume 85.7 fL (83.0-100.0); Mean Platelet Volume 12.2 fL (9.4-12.4); Platelet Count 181 K/mcL (140-400); Red Blood Count 3.64 M/mcL (3.82-4.97)
[2016-08-23 05:32] LABS: Alanine Aminotransferase 20 Units/L (0-55); Albumin 1.7 g/dL (3.5-5.0); Albumin/Globulin Ratio 0.4 (1.1-2.2); Alkaline Phosphatase 74 Units/L (38-126); Aspartate Amino Transferase 33 Units/L (5-34); BUN/Creatinine Ratio 28 (6-26); Bilirubin,Total 0.3 mg/dL (0.2-1.2); Blood Urea Nitrogen 22 mg/dL (7-20); Calcium 7.7 mg/dL (8.6-10.8); Carbon Dioxide 27 mEq/L (19-29); Chloride 112 mEq/L (98-109); Glucose 125 mg/dL (70-99); Osmolality,Calculated 305 (280-300); Potassium 3.5 mEq/L (3.5-4.5); Sodium 145 mEq/L (136-145); Total Protein 5.7 g/dL (6.0-8.3); eGFR For African Americans > 60 (> 60); eGFR For Non-African Americans > 60 (> 60)
[2016-08-23 05:38] LABS: Anisocytosis 1+ (Not Present); Large Platelets Present (Not Present); Lymphocytes # 1.8 K/mcL (0.6-4.6); Microcytosis Present (Not Present); Monocytes # 0.5 K/mcL (0.0-1.3); Neutrophils # 9.1 K/mcL (1.6-8.9); Platelet Estimate Normal (Normal); Polychromasia 1+ (Not Present)
[2016-08-23] MEDS: *HR* Heparin 5,000 UNIT/ML VIAL SQ SCH (05:41)
[2016-08-23] MEDS: Divalproex Sodium 125 MG CAPSULE PO SCH ×2 (08:40→15:25)
[2016-08-23] MEDS: MetroNIDAZOLE 500 MG/100 ML 500 MG/100 ML BAG IVPB SCH (08:48)
[2016-08-23] MEDS: Lactobacillus 1 EACH CAP.SPRINK PO SCH (08:49)
[2016-08-23] MEDS ORDERED: Levofloxacin 750 MG/150 ML 750 MG/150 ML BAG IVPB SCH (09:00)
[2016-08-23] MEDS ORDERED: Potassium Chloride Elixir 20 MEQ/15 ML UDC PO ONE (09:48)
[2016-08-23] MEDS: Vancomycin 750 MG in D5% in Water 250 ML IVPB SCH (11:00)
[2016-08-23 11:16] VITALS: BP 134/71
--- NOTE | 2016-08-23 13:10 | Discharge Summary ---
Date of Encounter: 08/23/16 Time of Encounter: 13:08 - Discharge Diagnosis (1) Acute metabolic encephalopathy Priority: Primary Status: Acute (2) Bacterial pneumonia Priority: Primary Status: Acute (3) Hypernatremia Priority: Primary Status: Acute (4) Acute kidney injury Priority: Primary Status: Acute (5) Dehydration Priority: Primary Status: Acute (6) DVT prophylaxis Priority: Secondary Status: Acute (7) Solitary thyroid nodule Priority: Secondary Status: Acute (8) Decubitus ulcer of ankle, stage 1 Priority: Secondary Status: Acute Qualifiers: Laterality: right Qualified Code(s): L89.511 - Pressure ulcer of right ankle, stage 1 - Discharge Medications Prescriptions: levoFLOXacin [Levaquin] 500 mg PO DAILY #7 tablet metroNIDAZOLE [Flagyl] 500 mg PO TID #21 tablet Spironolactone [Aldactone] 50 mg PO DAILY #30 tablet Home Medications: Amino Acids/Protein Hydrolys [Pro-Stat Awc Liquid] 30 ml PO DAILY 08/19/16 [ History] Carvedilol [Coreg] 6.25 mg PO BIDWM 08/19/16 [History] Clopidogrel [Plavix] 75 mg PO DAILY 08/19/16 [History] Cyclobenzaprine [Flexeril] 10 mg PO Q8H PRN 08/19/16 [History] Diphenoxylate/Atropine [Lomotil 2.5 mg/0.025 mg] 1 tab PO Q6H PRN 08/19/16 [ History] Divalproex Sodium [Depakote Sprinkle] 250 mg PO TID 08/19/16 [History] Furosemide [Lasix] 20 mg PO DAILY PRN 08/19/16 [History] Furosemide [Lasix] 40 mg PO DAILY 08/19/16 [History] Lactose-Reduced Food [Ensure Plus] 1 bottle PO DAILY 08/19/16 [History] Lipase/Protease/Amylase [Creon Dr 24,000 Units Capsule] 1 each PO TID 08/19/16 [ History] Melatonin [Melatin] 6 mg PO HS 08/19/16 [History] Memantine [Namenda] 5 mg PO HS 08/19/16 [History] Methyl Salicylate/Menthol [Cold & Hot Pain Relief [place]] 1 appl TP Q12H PRN 08/19 [History] Mirtazapine 7.5 mg PO HS 08/19/16 [History] Multivitamin-Min/Iron/FA/Vit K [Multi-Day Plus Minerals Tablet] 1 each PO DAILY 08/19/16 [History] Nystatin POWDER [Nystop] 1 appl TP BID PRN 08/19/16 [History] Potassium Chloride [Klor-Con 10] 20 meq PO DAILY 08/19/16 [History] Pravastatin Sodium [Pravachol] 20 mg PO HS 08/19/16 [History] Quetiapine Fumarate [Seroquel] 25 mg PO HS 08/19/16 [History] RisperiDONE [Risperdal] 0.5 mg PO BID 08/19/16 [History] Tramadol HCl [Ultram] 50 mg PO Q4H 08/19/16 [History] Tramadol HCl [Ultram] 50 mg PO Q4H PRN 08/19/16 [History] Docusate [Colace] 100 mg PO BID PRN #0 capsule 08/23/16 [Rx] Heparin 5,000 unit SQ Q12HCO vial 08/23/16 [Rx] Lactobacillus [Culturelle] 1 each PO BID cap.sprink 08/23/16 [Rx] Spironolactone [Aldactone] 50 mg PO DAILY #30 tablet 08/23/16 [Rx] levoFLOXacin [Levaquin] 500 mg PO DAILY #7 tablet 08/23/16 [Rx] metroNIDAZOLE [Flagyl] 500 mg PO TID #21 tablet 08/23/16 [Rx] Allergies/Adverse Reactions: Allergies acetaminophen Allergy (Mild, Verified 06/09/15 13:00) Rash aspirin [ASA] Allergy (Verified 06/09/15 13:00) Rash bacitracin Allergy (Verified 06/09/15 13:00) Rash Cefadroxil Allergy (Verified 06/09/15 13:00) Rash cephalexin Allergy (Verified 08/19/16 14:56) See Comments iodine Allergy (Verified 08/19/16 14:56) See Comments Penicillins Allergy (Verified 08/19/16 14:56) See Comments Procedures/tests Complete & Pending: Procedures Performed prior 72 hours Category Date Time Status Venous Doppler [EV venous imaging UE LT] Stat Y 08/21/16 12:22 Completed Date of admission: 08/19/16 18:59 Primary care physician: PCP NO Consults: 08/20/16 07:11 Consult to Shuttle Fitting Supervisor [CONS] Routine Reason for SW Consult: from [facility] 08/20/16 08:35 Consult to Pulmonology [CONS] Routine Consulting Provider: [facility] Reason for Consult: lung nodule Time Notified: 08:37 Call Completed: No 08/20/16 11:40 Consult to Invasive Line Access Team [CONS] Routine Reason for Consult: poor peripheral access Line Type: EPIV 08/22/16 15:04 Consult to Infectious Diseases [CONS] Routine Consulting Provider: Infectious Disease [place] Reason for Consult: Positive blood and spinal fluid culture Time Notified: 15:05 Call Completed: No Discharging clinician: Ilia Oates Anticipated date of discharge: 08/23/16 - Patient Status Disposition: Transfer SNF Functional capacity at discharge: bed bound Overall status at discharge: patient is back to baseline - Discharge Instructions Follow Up With: NO,PCP [Primary Care Provider] - - Diet and Activity Activity: as per physical therapy Diet: advance to your usual diet Interval History: Ms. Leeann Rivas is an 86-year-old female came in with altered mental status sodium 162 and elevated creatinine and low potassium as well as aspiration pneumonia. She was restarted on IV fluid and IV antibiotics including vancomycin and Levaquin and aztreonam. Later aztreonam was discontinued and Flagyl was added. patient is well awake and alert in no follows commands and answer questions. She is pleasantly confused which I think is her baseline. She needs some attention otherwise she can feed very well. At this time we are switching her to her overall medication before she can be discharged to longterm. Her renal and electrolyte abnormalities have been corrected hydration. She was noted to have solitary lung nodule being demonstrated and possible pancreatic cyst shown on CT abdomen.so noted to have bilateral thyroid nodule on both lobes. Ultrasound of thyroid nodule showed benign nature while TSH was also normal. She was seen by pulmonology Dr. Lopez. Her swallowing evaluation is already completed and she has been recommended to have pureed diet and nectar thick liquids. Hospital course: Ms. Rivas is a 86 year old female - Time Spent with Patient Total time spent providing and/or coordinating discharge services: Greater than 30 minutes - Constitutional Vitals: Temp Pulse Resp BP Pulse Ox 98.2 F 83 16 134/71 97 08/23/16 11:15 08/23/16 11:15 08/23/16 11:15 08/23/16 11:15 08/23/16 11:15 General appearance: Present: cooperative, pleasant, no acute distress Exam: Issue is awake follow commands and answer simple questions - Head Head exam: Present: atraumatic, normocephalic - Eye Eye exam: Present: PERRL, conjuntiva pink, sclera anicteric Pupils: Present: PERRL - Neck Neck exam general surgery: Present: supple, trachea midline. Absent: lymphadenopathy - Respiratory Respiratory exam: Present: CTAB. Absent: accessory muscle use, rales, rhonchi, wheezes - Cardiovascular Cardiovascular exam: Present: RRR, +S1, +S2. Absent: diastolic murmur, gallop, rubs, systolic murmur - GI/Abdominal GI/Abdominal exam: Present: normal bowel sounds, soft, no peritoneal signs. Absent: distended, tenderness - Extremities Exam Extremities exam: Present: warm, radial pulses palpable and symetrical. Absent : calf tenderness, cyanotic, pedal edema - Neurological Exam Neurological exam: Present: no focal deficits. Absent: pronater drift, facial droop, speech deficit - Skin Skin exam: Present: dry, intact - VTE Documentation of Mechanical Device: Graduated compression elastic hosiery
--- NOTE | 2016-08-23 13:34 | Venous Imaging Report ---
UE Venous Duplex Patient Name:Leeann Rivas Order Number:[id number] Procedure Date:08/21/2016 Date:1930ge:86 yrs Gender:Female Location:[facility] Room #: 3A11 Surgical Scheduler:Columba Acevedo Referring MD:Ilia Oates MD mangle operator garments:None Reading MD:Royal Johnson MD , FACS Primary Indications:left hand blue/dusky, R/O DVT Secondary Indications: Impressions: Left upper extremity: normal superficial and deep exam. Right upper extremity: normal contralateral exam. Recommendations: After imaging the patient returned to their room. Findings Venous Duplex Results: Right: Venous imaging of the upper extremity reveals full patency and normal vessel compressibility of the right subclavian. Doppler signals in the evaluated veins were normal. Left: Venous imaging of the upper extremity reveals full patency and normal vessel compressibility of the left jugular, left subclavian, left axillary, left brachial, left cephalic, left basilic, left radial and left ulnar. Doppler signals in the evaluated veins were normal. Prior Study: No prior study available for comparison. Upper Extremity Venous Duplex Side Vein Compress Spontaneous Flow Augment Left Jugular Normal Yes Phasic Yes Left Subclavian Normal Yes Phasic Yes Left Axillary Normal Yes Phasic Yes Left Brachial Normal Yes Phasic Yes Left Cephalic Normal Yes Phasic Yes Left Basilic Normal Yes Phasic Yes Left Radial Normal Yes Phasic Yes Left Ulnar Normal Yes Phasic Yes Right Subclavian Normal Yes Phasic Yes Updated by Royal Johnson MD, FACS on 08/23/2016 1:31:30 PM Royal Johnson MD electronically signed on 08/23/2016 1:31:48 PM with status of Final
--- NOTE | 2016-08-23 13:36 | Physician Discharge Referral ---
ExtendedCare Referral Info Transfer To: snf Provider in Charge: lolly Provider in Charge after Transfer: PCP (Patient needs BMP on twice-weekly basis for next 2 weeks starting on on August 25Thursday and follow the results with admitting doctor or chief nursing executive. She was recommended to have pureed diet with nectar thick liquid and with some attention she is finishing her tray. Lasix has been taken off and started Aldactone has been started) - Diagnosis (1) Acute metabolic encephalopathy Status: Acute (2) Bacterial pneumonia Status: Acute (3) Hypernatremia Status: Acute (4) Acute kidney injury Status: Acute (5) Dehydration Status: Acute (6) DVT prophylaxis Status: Acute (7) Solitary thyroid nodule Status: Acute (8) Decubitus ulcer of ankle, stage 1 Status: Acute - Transfer Medications Prescriptions: levoFLOXacin [Levaquin] 500 mg PO DAILY #7 tablet metroNIDAZOLE [Flagyl] 500 mg PO TID #21 tablet Spironolactone [Aldactone] 50 mg PO DAILY #30 tablet Home Medications: Amino Acids/Protein Hydrolys [Pro-Stat Awc Liquid] 30 ml PO DAILY 08/19/16 [ History] Carvedilol [Coreg] 6.25 mg PO BIDWM 08/19/16 [History] Clopidogrel [Plavix] 75 mg PO DAILY 08/19/16 [History] Cyclobenzaprine [Flexeril] 10 mg PO Q8H PRN 08/19/16 [History] Diphenoxylate/Atropine [Lomotil 2.5 mg/0.025 mg] 1 tab PO Q6H PRN 08/19/16 [ History] Divalproex Sodium [Depakote Sprinkle] 250 mg PO TID 08/19/16 [History] Furosemide [Lasix] 20 mg PO DAILY PRN 08/19/16 [History] Furosemide [Lasix] 40 mg PO DAILY 08/19/16 [History] Lactose-Reduced Food [Ensure Plus] 1 bottle PO DAILY 08/19/16 [History] Lipase/Protease/Amylase [Creon Dr 24,000 Units Capsule] 1 each PO TID 08/19/16 [ History] Melatonin [Melatin] 6 mg PO HS 08/19/16 [History] Memantine [Namenda] 5 mg PO HS 08/19/16 [History] Methyl Salicylate/Menthol [Cold & Hot Pain Relief [place]] 1 appl TP Q12H PRN 08/19 [History] Mirtazapine 7.5 mg PO HS 08/19/16 [History] Multivitamin-Min/Iron/FA/Vit K [Multi-Day Plus Minerals Tablet] 1 each PO DAILY 08/19/16 [History] Nystatin POWDER [Nystop] 1 appl TP BID PRN 08/19/16 [History] Potassium Chloride [Klor-Con 10] 20 meq PO DAILY 08/19/16 [History] Pravastatin Sodium [Pravachol] 20 mg PO HS 08/19/16 [History] Quetiapine Fumarate [Seroquel] 25 mg PO HS 08/19/16 [History] RisperiDONE [Risperdal] 0.5 mg PO BID 08/19/16 [History] Tramadol HCl [Ultram] 50 mg PO Q4H 08/19/16 [History] Tramadol HCl [Ultram] 50 mg PO Q4H PRN 08/19/16 [History] Docusate [Colace] 100 mg PO BID PRN #0 capsule 08/23/16 [Rx] Heparin 5,000 unit SQ Q12HCO vial 08/23/16 [Rx] Lactobacillus [Culturelle] 1 each PO BID cap.sprink 08/23/16 [Rx] Spironolactone [Aldactone] 50 mg PO DAILY #30 tablet 08/23/16 [Rx] levoFLOXacin [Levaquin] 500 mg PO DAILY #7 tablet 08/23/16 [Rx] metroNIDAZOLE [Flagyl] 500 mg PO TID #21 tablet 08/23/16 [Rx] Allergies/Adverse Reactions: Allergies acetaminophen Allergy (Mild, Verified 06/09/15 13:00) Rash aspirin [ASA] Allergy (Verified 06/09/15 13:00) Rash bacitracin Allergy (Verified 06/09/15 13:00) Rash Cefadroxil Allergy (Verified 06/09/15 13:00) Rash cephalexin Allergy (Verified 08/19/16 14:56) See Comments iodine Allergy (Verified 08/19/16 14:56) See Comments Penicillins Allergy (Verified 08/19/16 14:56) See Comments - Respiratory Orders Smoking Cessation: Smoking cessation has been advised. For more information, call the [place] Tobacco Quit Line at 5-936-NVSC-NOW. CERTIFICATION: I certify that the transfer of the above named patient to an Extended Care Facility is necessary for the continuing treatment of the diagnosis listed. The above information is true and accurate reflection of patient's current condition. Confidential - Redisclosure prohibited without a patient's written consent.
[2016-08-23] MEDS ORDERED: Aminoglycoside Consult 1 EACH MC ONE (16:03)
== END 2016-08-23 16:04 | DRG 193 ==
LOC: EMEROO 14:39 → 3ANU 18:59
PROVIDERS: ADMIT Nurse Practitioner Acute Care; ATTEND Internal Medicine